=== PATIENT | female | born 1935 | race Caucasian/White ===

== ENCOUNTER → 2018-01-23 | Outpatient (CLI) | payer OTHER ==
[~2018-01-23] MED LIST: ASPI81TA28 PO; ATOR-24 PO; BNC5 PO; CALC500C70 PO; CLOP1TAB15 PO; FLUO20CA35 PO; FURO-85 PO; HYDCR1CL TOP; METO25TA56 PO; MULT-506 PO; NTRGSL/4 UT; SPIR25TA PO
== END | disposition home or self-care (01) ==
LOC: C.LAB1850 08:27
PROVIDERS: ATTEND Internal Medicine Cardiovascular Disease
DX: I10 Essential (primary) hypertension (principal); E78.5 Hyperlipidemia, unspecified

== ENCOUNTER 2022-09-06 09:40 | Inpatient (IN) ==
[2022-09-06] MEDS ORDERED: SODIUM CHLORIDE 0.9% 1000ML 500 ML IV ONE (10:03)
[2022-09-06 10:34] LABS: Basophils # (auto) 0.03 K/uL (0-0.2); Basophils % (auto) 0.4 %; Eosinophils % (auto) 1.3 %; Hematocrit (blood only) 44.5 % (37.0-47.0); Hemoglobin 15.1 g/dl (12.0-16.0); Immature Granulocytes # (auto) 0.02 K/uL (0.01-0.20); Immature Granulocytes % (auto) 0.3 %; Lymphocytes # (auto) 1.42 K/uL (1.2-3.4); Lymphocytes % (auto) 17.8 %; Mean Corpuscular Hemoglobin 32.5 pg (25.0-34.0); Mean Corpuscular Hgb Conc 33.9 g/dL (32.0-36.0); Mean Corpuscular Volume 95.9 fL (80.0-100.0); Mean Platelet Volume 9.7 fL (9.4-12.4); Monocytes # (auto) 0.82 K/uL (0.11-0.59); Monocytes % (auto) 10.3 %; Neutrophils # (auto) 5.59 K/uL (1.40-6.50); Neutrophils % (auto) 69.9 %; Platelet Count 255 K/uL (130-400); RDW Coefficient of Variation 12.9 % (11.5-14.5); RDW Standard Deviation 45.3 fL (36.4-46.3); Red Blood Count 4.64 M/uL (4.20-5.40); White Blood Count 7.98 K/ul (4.8-10.8)
[2022-09-06 10:50] LABS: Albumin Globulin Ratio 1.4 (0.9-2); Albumin Level 4.4 gm/dl (3.4-5.0); BUN Creatinine Ratio 15.4 (10-20); Bilirubin,Total 0.7 mg/dl (0.2-1.0); Creatinine Clr Calc Pharmacy 65.2 ml/min; Est GFR (African American) 93.8 ml/min; Globulin 3.1 gm/dl (2.5-4.0); Magnesium 1.9 mg/dl (1.7-2.4); Potassium 3.6 mmol/L (3.5-5.1); Total Protein 7.5 gm/dl (6.0-8.3)
[2022-09-06 10:57] LABS: Troponin I High Sensitivity 19.6 pg/ml (0-14)
--- NOTE | 2022-09-06 10:58 | XRay Report ---
XR shoulder LT min 2V routine CLINICAL HISTORY: Left shoulder pain s/p fall COMPARISON: None FINDINGS: Left subclavian pacer is partially imaged. Alignment of the left shoulder is anatomic. No acute fracture. There are no osseous lesions. There is possible calcific tendinitis of the left rotat or cuff. Joint body could appear similar. Moderate AC joint osteoarthritis is present. There is mild glenohumeral joint osteoarthritis. IMPRESSION: No acute fracture or dislocation within the left shoulder. ACT 112: Negative or not required by law. Electronically signed by: Jarett Chiu M.D. 09/06/2022 10:57 AM
[2022-09-06 10:59] LABS: INR 1.1 (0.9-1.1); Prothrombin Time 11.3 Seconds (9.0-12.0)
--- NOTE | 2022-09-06 11:02 | XRay Report ---
XR chest 1V portable HISTORY: weakness COMPARISON: Chest 02/15/2013. FINDINGS: No pneumothorax. No pleural effusions. The cardiac silhouette remains mildly enlarged. The left-sided pacemaker/defibrillator. Left basilar linear densities favor subsegmental atelectasis. Oth erwise, no focal lung consolidations to suggest a pneumonia. No evidence for pulmonary edema. Degener ative changes again noted within the shoulders. IMPRESSION: No significant change compared to the prior study. No acute process. ACT 112: Negative or not required by law. Electronically signed by: Valdo Pretty M.D. 09/06/2022 11:01 AM
--- NOTE | 2022-09-06 11:05 | Emergency Department Note ---
ED Provider Note History of Present Illness Chief Complaint: Fall Stated Complaint: FALL, L ARM PAIN Time Seen by Provider: 09/06/22 09:46 86-year-old female who presents the emergency department via ambulance for evaluation of a fall with related injuries. The patient reports that she was standing in her 's bedroom on Sunday when she fell. The patient reports that she fell because of weakness. Per EMS, the at home reported that she has fallen several times over the past month to month and a half. The patient reports dizziness. She reports generalized left shoulder pain extending into the back and neck. She denies any loss of consciousness from her fall. She also currently denies any headache, chest pain, shortness of breath or abdominal pain. She denies any recent infections. She denies known history of thyroid disease. The patient rates her discomfort a 4 out of 10. Home Medications Medication Instructions Recorded Confirmed Type aspirin 81 mg tablet,delayed 81 mg PO DAILY 04/22/19 09/06/22 History release (Mel Low Dose Aspirin) atorvastatin 40 mg tablet 40 mg PO QPM 04/22/19 09/06/22 History clopidogrel 75 mg tablet 75 mg PO DAILY #90 tabs 04/22/19 09/06/22 Rx furosemide 20 mg tablet 20 mg PO DAILY 04/22/19 09/06/22 History metoprolol tartrate 25 mg tablet 25 mg PO BID 04/22/19 09/06/22 History multivitamin 1 tab PO DAILY 04/22/19 09/06/22 History nitroglycerin 0.4 mg sublingual 0.4 mg sublingual Q5M PRN Chest 04/22/19 09/06/22 History tablet Pain spironolactone 25 mg tablet 12.5 mg PO DAILY 04/22/19 09/06/22 History calcium carbonate 500 mg-vitamin 1 tab PO TID 09/06/22 09/06/22 History D3 5 mcg (200 unit) tablet (Calcium 500 + D) fluoxetine 20 mg capsule 20 mg PO QAM 09/06/22 09/06/22 History Allergies Allergy/AdvReac Type Severity Reaction Status Date / Time Penicillins Allergy Mild Verified 07/14/22 10:10 Bactrim Allergy Unknown As per H&P Verified 12/01/14 12:06 Dr Zazueta meclofenamic acid Allergy Unknown Verified 07/14/22 10:10 propoxyphene Allergy Unknown Verified 07/14/22 10:10 sulfamethoxazole Allergy Unknown As per H&P Verified 07/14/22 10:10 Dr Zazueta trimethoprim Allergy Unknown As per H&P Verified 07/14/22 10:10 Dr Zazueta Past Med/Surg History Medical History Biventricular ICD (implantable cardioverter-defibrillator) in place CAD (coronary artery disease) Cardiomyopathy Depression Dyslipidemia History of myocardial infarction History of pacemaker Hypercholesterolemia Hypertension ICD (implantable cardioverter-defibrillator), single, in situ Sensorineural hearing loss of both ears Surgical History History of implantable cardioverter-defibrillator (ICD) placement Family History (Updated 09/06/22 @ 15:12 by Amy Weir PA-C) Other Heart disease Stroke Social History (Updated 09/06/22 @ 14:04 by Mauri Miller) Smoking Status: Never smoker Preferred Language: Citizen Of [place] marital status: Current Living Situation: Spouse current occupational status: retired Feels Safe at Home: Yes Physical Exam Vital Signs Vital Signs - 24 hr 09/06/22 09:46 09/06/22 09:46 09/06/22 10:03 Temperature 36.4 C L Temperature Source Oral Pulse Rate - Lying Pulse Rate - Sitting Pulse Rate 86 Pulse Rate [Apical] 96 H Pulse Rate from SpO2 Sensor Pulse Rhythm [Apical] Respiratory Rate 16 16 Respiratory Effort / Characteristics Respiratory Depth Respiratory Pattern Blood Pressure - Lying Blood Pressure - Sitting Blood Pressure 204/86 H Blood Pressure [Left Arm] Blood Pressure Mean 125 Blood Pressure Mean [Left Arm] Blood Pressure Position [Left Arm] Pulse Oximetry 95 96 96 Oxygen Delivery Method Sepsis Recent Fever Within 48 Hours No Sepsis New/Unexplained Change in Mental Status N/A Sepsis Action Taken by Nursing No Action Required 09/06/22 10:32 09/06/22 10:35 09/06/22 12:30 Temperature Temperature Source Pulse Rate - Lying 63 Pulse Rate - Sitting 62 Pulse Rate Pulse Rate [Apical] 68 66 Pulse Rate from SpO2 Sensor Pulse Rhythm [Apical] Regular Respiratory Rate 16 16 Respiratory Effort / Characteristics Non-Labored Respiratory Depth Normal Respiratory Pattern Regular Blood Pressure - Lying 179/72 H Blood Pressure - Sitting 177/91 H Blood Pressure Blood Pressure [Left Arm] 172/79 H 171/83 H Blood Pressure Mean Blood Pressure Mean [Left Arm] 110 112 Blood Pressure Position [Left Arm] Lying Pulse Oximetry 96 94 Oxygen Delivery Method Room Air Sepsis Recent Fever Within 48 Hours Sepsis New/Unexplained Change in Mental Status Sepsis Action Taken by Nursing 09/06/22 13:47 09/06/22 13:46 09/06/22 13:50 Temperature Temperature Source Pulse Rate - Lying Pulse Rate - Sitting Pulse Rate 75 75 78 Pulse Rate [Apical] Pulse Rate from SpO2 Sensor 73 78 Pulse Rhythm [Apical] Respiratory Rate 19 21 Respiratory Effort / Characteristics Respiratory Depth Respiratory Pattern Blood Pressure - Lying Blood Pressure - Sitting Blood Pressure Blood Pressure [Left Arm] Blood Pressure Mean Blood Pressure Mean [Left Arm] Blood Pressure Position [Left Arm] Pulse Oximetry 93 93 Oxygen Delivery Method Sepsis Recent Fever Within 48 Hours Sepsis New/Unexplained Change in Mental Status Sepsis Action Taken by Nursing 09/06/22 14:00 09/06/22 14:01 09/06/22 14:01 Temperature Temperature Source Pulse Rate - Lying Pulse Rate - Sitting Pulse Rate 79 78 Pulse Rate [Apical] Pulse Rate from SpO2 Sensor 64 78 Pulse Rhythm [Apical] Respiratory Rate 26 H 21 Respiratory Effort / Characteristics Respiratory Depth Respiratory Pattern Blood Pressure - Lying Blood Pressure - Sitting Blood Pressure 180/75 H Blood Pressure [Left Arm] Blood Pressure Mean 110 Blood Pressure Mean [Left Arm] Blood Pressure Position [Left Arm] Pulse Oximetry 93 92 Oxygen Delivery Method Sepsis Recent Fever Within 48 Hours Sepsis New/Unexplained Change in Mental Status Sepsis Action Taken by Nursing 09/06/22 14:10 09/06/22 14:20 09/06/22 14:30 Temperature Temperature Source Pulse Rate - Lying Pulse Rate - Sitting Pulse Rate 76 84 87 Pulse Rate [Apical] Pulse Rate from SpO2 Sensor 51 L 85 84 Pulse Rhythm [Apical] Respiratory Rate 21 25 H 17 Respiratory Effort / Characteristics Respiratory Depth Respiratory Pattern Blood Pressure - Lying Blood Pressure - Sitting Blood Pressure Blood Pressure [Left Arm] Blood Pressure Mean Blood Pressure Mean [Left Arm] Blood Pressure Position [Left Arm] Pulse Oximetry 93 93 94 Oxygen Delivery Method Sepsis Recent Fever Within 48 Hours Sepsis New/Unexplained Change in Mental Status Sepsis Action Taken by Nursing 09/06/22 14:40 09/06/22 14:50 09/06/22 15:00 Temperature Temperature Source Pulse Rate - Lying Pulse Rate - Sitting Pulse Rate 77 85 65 Pulse Rate [Apical] Pulse Rate from SpO2 Sensor 56 L 80 63 Pulse Rhythm [Apical] Respiratory Rate 23 22 17 Respiratory Effort / Characteristics Respiratory Depth Respiratory Pattern Blood Pressure - Lying Blood Pressure - Sitting Blood Pressure Blood Pressure [Left Arm] Blood Pressure Mean Blood Pressure Mean [Left Arm] Blood Pressure Position [Left Arm] Pulse Oximetry 93 93 93 Oxygen Delivery Method Sepsis Recent Fever Within 48 Hours Sepsis New/Unexplained Change in Mental Status Sepsis Action Taken by Nursing 09/06/22 15:01 09/06/22 15:01 09/06/22 15:10 Temperature Temperature Source Pulse Rate - Lying Pulse Rate - Sitting Pulse Rate 76 77 Pulse Rate [Apical] Pulse Rate from SpO2 Sensor 67 77 Pulse Rhythm [Apical] Respiratory Rate 24 18 Respiratory Effort / Characteristics Respiratory Depth Respiratory Pattern Blood Pressure - Lying Blood Pressure - Sitting Blood Pressure 197/77 H Blood Pressure [Left Arm] Blood Pressure Mean 117 Blood Pressure Mean [Left Arm] Blood Pressure Position [Left Arm] Pulse Oximetry 95 93 Oxygen Delivery Method Sepsis Recent Fever Within 48 Hours Sepsis New/Unexplained Change in Mental Status Sepsis Action Taken by Nursing 09/06/22 15:20 09/06/22 15:30 09/06/22 15:40 Temperature Temperature Source Pulse Rate - Lying Pulse Rate - Sitting Pulse Rate 79 87 79 Pulse Rate [Apical] Pulse Rate from SpO2 Sensor 76 81 80 Pulse Rhythm [Apical] Respiratory Rate 24 22 24 Respiratory Effort / Characteristics Respiratory Depth Respiratory Pattern Blood Pressure - Lying Blood Pressure - Sitting Blood Pressure Blood Pressure [Left Arm] Blood Pressure Mean Blood Pressure Mean [Left Arm] Blood Pressure Position [Left Arm] Pulse Oximetry 95 94 92 Oxygen Delivery Method Sepsis Recent Fever Within 48 Hours Sepsis New/Unexplained Change in Mental Status Sepsis Action Taken by Nursing 09/06/22 15:43 09/06/22 15:43 09/06/22 15:50 Temperature Temperature Source Pulse Rate - Lying Pulse Rate - Sitting Pulse Rate 88 92 H Pulse Rate [Apical] Pulse Rate from SpO2 Sensor 89 85 Pulse Rhythm [Apical] Respiratory Rate 19 31 H Respiratory Effort / Characteristics Respiratory Depth Respiratory Pattern Blood Pressure - Lying Blood Pressure - Sitting Blood Pressure 207/106 H Blood Pressure [Left Arm] Blood Pressure Mean 139 Blood Pressure Mean [Left Arm] Blood Pressure Position [Left Arm] Pulse Oximetry 94 94 Oxygen Delivery Method Sepsis Recent Fever Within 48 Hours Sepsis New/Unexplained Change in Mental Status Sepsis Action Taken by Nursing CONSTITUTIONAL: Healthy and well nourished. Alert and oriented X 3. Patient does not appear in any acute distress. HEENT: Normocephalic, atraumatic. Pupils equal, round and reactive. No scleral icterus or conjunctival injection/pallor. No hemotympanum, epistaxis, raccoon's eyes or banegas sign. NECK: Patient has mild tenderness to palpation through the lower lumbar spine and paraspinous muscles. LYMPHATICS: No cervical chain adenopathy. RESPIRATORY: Clear to auscultation bilaterally with no wheezing, crackles, rhonchi or stridor. CARDIOVASCULAR: Regular rate and rhythm with no murmurs, rubs or gallops. GASTROINTESTINAL: Bowel sounds present in all quadrants. Abdomen is soft and nontender to palpation MUSCULOSKELETAL: Examination shows mild generalized tenderness to palpation about the left distal clavicle and shoulder region. No ecchymosis or soft tissu e edema noted. No significant pain with gentle internal and external rotation. INTEGUMENTARY: No rash or other significant dermatologic conditions noted. HEMATOLOGIC: No ecchymosis or petechiae. PSYCHIATRIC: Positive affect. NEUROLOGIC: Cranial nerves II-XII grossly intact. No focal neurologic deficits noted. Left deltoid, hand and fingers are sensory intact. Course Course Patient history and physical exam were performed. Nurses notes were reviewed. Vital signs were reviewed. The patient refused any analgesics on initial exam. I did recommend because she has had frequent falls, that we do additional work-up to look for possible etiologies for her falls. I did indicate that I would perform x-rays of the left shoulder, as well as CT imaging of the head and neck to rule out intracranial bleed or cervical spine injury. IV access was established, and labs were drawn. The patient refused any analgesics. The patient was hydrated with a normal saline 500 cc bolus. An ECG was performed, showing a paced ventricular rhythm with a PVC. The patient was placed on monitoring manager while in the emergency department. Review of labs shows a relatively normal CBC, coagulation studies and CMP, other than a mildly elevated glucose of 140. Troponin is mildly elevated at 19.6. TSH is normal. Urinalysis shows a contaminated sample with positive nitrites, leukocyte esterase and bacteria. COVID-19 was negative. When I went back to reevaluate the patient, multiple family members were present. They were advised of the patient's findings of UTI, mildly elevated troponin and cervical/thoracic spine fractures. The patient reports that she did not have any back or neck pain prior to her most recent fall, indicating that these are indeed no acute fractures. I did explain that we do not have any orthopedic spine surgeon on-call today, however would try to reach out to Dr. Mederos. The reports that he did surgery on his back in the past. If we are unable to consult spine surgery today, the patient would need to be transferred to a tertiary care facility. It was a large delay in trying to reach out to Dr. Mederos or his physician multimedia production assistant, however I was successfully able to speak with Dr. Mederos's physician multimedia production assistant, Violetta, who agreed that they could follow the patient as her case would be nonsurgical. The information was relayed back to the family, who were relieved. [facility] Please see their and Dr. Mederos's dictations for further treatment and final disposition. As we were waiting for spine surgery to call back, the then reported that the patient's fall was a mechanical fall as she was making his bed, and tripped over a rug. He also reports that the patient's 2 previous falls happened 3 years ago. He reports that she has not had frequent falls recently as it was reported by EMS staff. Administered Medications Discontinued Medications Sodium Chloride (Nss 1000ml) 500 mls @ 999 mls/hr IV .Q31M ONE Stop: 09/06/22 10:33 Last Infusion: 09/06/22 12:36 Dose: 0 mls/hr Documented By: Admin: 09/06/22 10:32 Dose: 999 mls/hr Documented By: KRISTIN Ceftriaxone Sodium (Rocephin) 2,000 mg in 70 mls @ 140 mls/hr IV NOW STA Stop: 09/06/22 13:56 Last Infusion: 09/06/22 14:27 Dose: 0 mls/hr Documented By: Admin: 09/06/22 13:47 Dose: 140 mls/hr Documented By: JUANJO Metoprolol Tartrate (Metoprolol Tartrate 25 Mg Tab) 25 mg PO NOW STA Stop: 09/06/22 15:47 Last Admin: 09/06/22 15:56 Dose: 25 mg Documented By: JUANJO Medical Decision Making Medical Records Attestation: I reviewed the patient's medical records. Home Medications was personally reviewed by mo Laboratory Data Attestation: I reviewed the patient's lab results. 09/06/22 09:56 09/06/22 09:56 Lab Results 09/06/22 09/06/22 09/06/22 Range/Units 09:56 09:56 09:56 WBC 7.98 (4.8-10.8) K/ul RBC 4.64 (4.20-5.40) M/uL Hgb 15.1 (12.0-16.0) g/dl Hct 44.5 (37.0-47.0) % MCV 95.9 (80.0-100.0) fL MCH 32.5 (25.0-34.0) pg MCHC 33.9 (32.0-36.0) g/dL RDW Std Deviation 45.3 (36.4-46.3) fL RDW Coeff of Nam 12.9 (11.5-14.5) % Plt Count 255 (130-400) K/uL MPV 9.7 (9.4-12.4) fL Immature Gran % (Auto) 0.3 % Neut % (Auto) 69.9 % Lymph % (Auto) 17.8 % [place] % (Auto) 10.3 % Eos % (Auto) 1.3 % Baso % (Auto) 0.4 % Neut # (Auto) 5.59 (1.40-6.50) K/uL Lymph # (Auto) 1.42 (1.2-3.4) K/uL [place] # (Auto) 0.82 H (0.11-0.59) K/uL Eos # (Auto) 0.10 (0-0.50) K/uL Baso # (Auto) 0.03 (0-0.2) K/uL Immature Gran # (Auto) 0.02 (0.01-0.20) K/uL PT 11.3 (9.0-12.0) Seconds INR 1.1 (0.9-1.1) Sodium 138 (136-145) mmol/L Potassium 3.6 (3.5-5.1) mmol/L Chloride 102 (98-107) mmol/L Carbon Dioxide 26 (21-32) mmol/L Anion Gap 10 (3-11) BUN 10 (6-23) mg/dl Creatinine 0.65 (0.6-1.2) mg/dl Est Cr Clr Drug Dosing 65.2 ml/min Est GFR ( Amer) 93.8 ml/min Est GFR (Non-Af Amer) 81.0 ml/min BUN/Creatinine Ratio 15.4 (10-20) Glucose 140 H (70-99(Fasting)) mg/dl Calcium 10.0 (8.5-10.1) mg/dl Magnesium 1.9 (1.7-2.4) mg/dl Total Bilirubin 0.7 (0.2-1.0) mg/dl AST 14 (13-39) U/L ALT 10 (7-52) U/L Alkaline Phosphatase 72 (34-104) U/L Troponin I High Sens 19.6 H (0-14) pg/ml Total Protein 7.5 (6.0-8.3) gm/dl Albumin 4.4 (3.4-5.0) gm/dl Globulin 3.1 (2.5-4.0) gm/dl Albumin/Globulin Ratio 1.4 (0.9-2) TSH (0.300-4.500) uIu/ml Urine Color Urine Appearance (Clear) Urine pH (4.5-7.5) Ur Specific [place] (1.000-1.030) Urine Protein (Negative) Urine Glucose (UA) (Negative) Urine Ketones (Negative) Urine Blood (Negative) Urine Nitrite (Negative) Urine Bilirubin (Negative) Urine Urobilinogen (Negative) Ur Leukocyte Esterase (Negative) Urine WBC (Auto) (0-5) /hpf Urine RBC (Auto) (0-4) /hpf U Hyaline Cast (Auto) (0-5) /lpf U Epithel Cells (Auto) (0-5) /lpf Urine Bacteria (Auto) (Negative) Urine Yeast SARS-CoV-2, RNA, NAAT (NEGATIVE) 09/06/22 09/06/22 09/06/22 Range/Units 09:56 11:29 13:30 WBC (4.8-10.8) K/ul RBC (4.20-5.40) M/uL Hgb (12.0-16.0) g/dl Hct (37.0-47.0) % MCV (80.0-100.0) fL MCH (25.0-34.0) pg MCHC (32.0-36.0) g/dL RDW Std Deviation (36.4-46.3) fL RDW Coeff of Nam (11.5-14.5) % Plt Count (130-400) K/uL MPV (9.4-12.4) fL Immature Gran % (Auto) % Neut % (Auto) % Lymph % (Auto) % [place] % (Auto) % Eos % (Auto) % Baso % (Auto) % Neut # (Auto) (1.40-6.50) K/uL Lymph # (Auto) (1.2-3.4) K/uL [place] # (Auto) (0.11-0.59) K/uL Eos # (Auto) (0-0.50) K/uL Baso # (Auto) (0-0.2) K/uL Immature Gran # (Auto) (0.01-0.20) K/uL PT (9.0-12.0) Seconds INR (0.9-1.1) Sodium (136-145) mmol/L Potassium (3.5-5.1) mmol/L Chloride (98-107) mmol/L Carbon Dioxide (21-32) mmol/L Anion Gap (3-11) BUN (6-23) mg/dl Creatinine (0.6-1.2) mg/dl Est Cr Clr Drug Dosing ml/min Est GFR ( Amer) ml/min Est GFR (Non-Af Amer) ml/min BUN/Creatinine Ratio (10-20) Glucose (70-99(Fasting)) mg/dl Calcium (8.5-10.1) mg/dl Magnesium (1.7-2.4) mg/dl Total Bilirubin (0.2-1.0) mg/dl AST (13-39) U/L ALT (7-52) U/L Alkaline Phosphatase (34-104) U/L Troponin I High Sens (0-14) pg/ml Total Protein (6.0-8.3) gm/dl Albumin (3.4-5.0) gm/dl Globulin (2.5-4.0) gm/dl Albumin/Globulin Ratio (0.9-2) TSH 0.972 (0.300-4.500) uIu/ml Urine Color Yellow Urine Appearance Turbid A (Clear) Urine pH 7.5 (4.5-7.5) Ur Specific [place] 1.018 (1.000-1.030) Urine Protein 1+ H (Negative) Urine Glucose (UA) Negative (Negative) Urine Ketones 2+ H (Negative) Urine Blood 1+ H (Negative) Urine Nitrite Positive A (Negative) Urine Bilirubin Negative (Negative) Urine Urobilinogen Negative (Negative) Ur Leukocyte Esterase 3+ H (Negative) Urine WBC (Auto) >30 H (0-5) /hpf Urine RBC (Auto) 5-10 H (0-4) /hpf U Hyaline Cast (Auto) 1-5 (0-5) /lpf U Epithel Cells (Auto) >30 H (0-5) /lpf Urine Bacteria (Auto) 4+ H (Negative) Urine Yeast Not Reportable SARS-CoV-2, RNA, NAAT NEGATIVE (NEGATIVE) Imaging Data Attestation: I personally reviewed and interpreted this imaging study as follows: My Impression: My interpretation of a portable chest x-ray does not show evidence for consolidations, pneumothorax or failure pattern. My interpretation of left shoulder x-rays does not show evidence for fracture or dislocation. My interpretation of a noncontrast CT of the head does not show evidence for skull fracture or intracranial bleed. My interpretation of cervical spine x-ray shows a compression fracture of C7 and left superior facet of C7. Radiologist also makes mention of endplate deformities of inferior T1, and superior T2. Radiologist reports were also reviewed with concurrence. Radiologist's Impression: Chest X-Ray 09/06/22 10:03 XR chest 1V portable HISTORY: weakness COMPARISON: Chest 02/15/2013. FINDINGS: No pneumothorax. No pleural effusions. The cardiac silhouette remains mildly enlarged. The left-sided pacemaker/defibrillator. Left basilar linear densities favor subsegmental atelectasis. Otherwise, no focal lung consolidations to suggest a pneumonia. No evidence for pulmonary edema. Degenerative changes again noted within the shoulders. IMPRESSION: No significant change compared to the prior study. No acute process. ACT 112: Negative or not required by law. Electronically signed by: Valdo Pretty M.D. 09/06/2022 11:[address] 09/06/22 10:03 CT SCAN OF THE BRAIN WITHOUT IV CONTRAST CLINICAL HISTORY: Fall. COMPARISON STUDY: CT of the brain dated 04/06/2013. TECHNIQUE: Unenhanced axial CT scan of the brain is performed from the vertex to the skull base. A dose lowering technique was utilized adhering to the principles of ALARA. CT DOSE: 1073.15 mGy.cm FINDINGS: Brain parenchyma: There is age-related involutional change noting mild subcortical and periventricular microangiopathic disease. There is no hemorrhag e, mass effect, or evidence of acute territorial ischemia by CT criteria. Hardin- white matter differentiation is preserved. No extra-axial fluid collection is seen. Ventricles, sulci, cisterns: Prominent secondary to involutional change. Intracranial vasculature: There is atherosclerotic calcification of the cavernous carotid arteries. Calvarium: The skeletal structures are osteopenic. No depressed calvarial fracture is seen. Sinuses and mastoids: The visualized paranasal sinuses are clear. The mastoid air cells are well pneumatized. Orbits: The bony orbits are grossly intact. There are bilateral ocular lens implants. IMPRESSION: There is no hemorrhage, mass effect, or evidence of acute territorial ischemia by CT criteria. ACT 112: Negative or not required by law. Electronically signed by: Ceferino Poole M.D. 09/06/2022 12:39 PM Shoulder X-Ray 09/06/22 10:03 XR shoulder LT min 2V routine CLINICAL HISTORY: Left shoulder pain s/p fall COMPARISON: None FINDINGS: Left subclavian pacer is partially imaged. Alignment of the left shoulder is anatomic. No acute fracture. There are no osseous lesions. There is possible calcific tendinitis of the left rotator cuff. Joint body could appear similar. Moderate AC joint osteoarthritis is present. There is mild glenohumeral joint osteoarthritis. IMPRESSION: No acute fracture or dislocation within the left shoulder. ACT 112: Negative or not required by law. Electronically signed by: Jarett Chiu M.D. 09/06/2022 10:[address] 09/06/22 10:08 CT OF THE CERVICAL SPINE WITHOUT CONTRAST CLINICAL HISTORY: s/p fall COMPARISON STUDY: Cervical spine CT February 15, 2013. TECHNIQUE: Helical axial images of the cervical spine were obtained without IV contrast. Sagittal and coronal reconstructions were viewed. Automated exposure control was utilized for the study. A dose lowering technique was utilized adhering to the principles of ALARA. FINDINGS: Asymmetric enlargement of the right thyroid lobe is again noted. This is unchanged. Reversal of the cervical lordosis is unchanged. Note is made of an acute fracture of the C7 vertebral body with 50% loss of vertebral body height and minimal retropulsion. There is an additional acute nondisplaced fracture of the left superior articulating facet of C7. There is an acute fracture along the inferior endplate of T1 with mild loss of vertebral body height. Fracture extends along anterior aspect of the inferior endplate. In addition, there is an acute appearing fracture of the superior endplate of T2 with mild loss of vertebral body height. Moderate multilevel degenerative changes are present. IMPRESSION: 1. Acute fracture of the C7 vertebral body with 50% loss of vertebral body height and minimal retropulsion. In addition, an acute nondisplaced fracture of the left superior articulating facet of C7. 2. Acute fractures of the inferior endplate of T1 and the superior endplate of T2 with mild loss of vertebral body height. ACT 112: Negative or not required by law. Electronically signed by: Jarett Chiu M.D. 09/06/2022 12:50 PM ECG Data Attestation: I personally reviewed and interpreted this ECG as follows: Indication: + weakness Rate (beats per minute): 69 Rhythm: + sinus rhythm (Paced ventricular) ECG [place]: + Normal Comparison ECG Date: from (12/01/2014) Change: no significant change MDM Narrative Cardiac monitoring: An order was placed for continuous cardiac monitoring. The monitor shows a ventricular paced rhythm with a rate of 69 bpm. teletypesetter monitor history was reviewed throughout the evaluation, and no dysrhythmias were noted. After discussions with the patient's , the patient presents to the emergency department with complaint of persistent left shoulder pain after she suffered a mechanical fall while making a bed on Sunday. They tried not conservative management at home with persistent pain, therefore brought her to the emergency department for further evaluation. Today's work-up shows a C7 vertebral fracture with a 50% compression, and minimal retropulsion, as well as a nondisplaced left lateral process fracture. The patient also has other mild endplate compression deformities of T1 and T2. Additional work-up today does show an elevated troponin, however the patient does have a prior history of m yocardial infarction. She also has urinalysis findings concerning for UTI. After discussing this further with our ED pharmacist, the patient will be empirically treated with IV Rocephin. The case was discussed with the [facility] hospitalist, who has agreed to admission. Please see their dictation, as well as Dr. Mederos's dictation for further treatment and final disposition. Impression Compression fracture of C7 vertebra, Compression fracture of thoracic vertebra Discharge Plan Visit Data Chief Complaint: Fall Stated Complaint: FALL, L ARM PAIN ED Provider: Donis Thomas ED Midlevel Provider: Mauri Miller Discharge Problem: Compression fracture of C7 vertebra, Compression fracture of thoracic vertebra Forms Stand Alone Forms: [facility] tenfarms Prescriptions Prescriptions: No Action aspirin [Mel Low Dose Aspirin] 81 mg tablet,delayed release (DR/EC) 81 mg PO DAILY metoprolol tartrate 25 mg tablet 25 mg PO BID nitroglycerin 0.4 mg tablet, sublingual 0.4 mg SL Q5M PRN (Reason: Chest Pain) clopidogrel 75 mg tablet 75 mg PO DAILY Qty: 90 3RF atorvastatin 40 mg tablet 40 mg PO QPM furosemide 20 mg tablet 20 mg PO DAILY Rx Instructions: as directed for weight gain greater than 2 lbs in 24 hours or greater than 4 lbs in 3 days spironolactone 25 mg tablet 12.5 mg PO DAILY multivitamin tablet 1 tab PO DAILY fluoxetine 20 mg capsule 20 mg PO QAM calcium carbonate-vitamin D3 [Calcium 500 + D] 500 mg-5 mcg (200 unit) Tablet 1 tab PO TID Referrals Referrals: Coleman Gonzales MD [Primary Care Provider] - Compression fracture of C7 vertebra Qualifiers: Encounter type: initial encounter Qualified Code(s): S12.690A - Other displaced fracture of seventh cervical vertebra, initial encounter for closed fracture Compression fracture of thoracic vertebra Qualifiers: Encounter type: initial encounter Thoracic vertebra fracture level: T1 Qualified Code(s): S22.010A - Wedge compression fracture of first thoracic vertebra, initial encounter for closed fracture
[2022-09-06 12:10] LABS: Appearance Urine Turbid (Clear); Bacteria Urine Automated 4+ (Negative); Bilirubin Urine Negative (Negative); Blood Urine 1+ (Negative); Color Urine Yellow; Epithelial Cell Urine Auto >30 /lpf (0-5); Glucose Urine UA Negative (Negative); Ketones Urine 2+ (Negative); Leukocyte Esterase Urine 3+ (Negative); Nitrite Urine Positive (Negative); Specific Gravity Urine 1.018 (1.000-1.030); Urobilinogen Urine Negative (Negative); WBC Urine Automated >30 /hpf (0-5); pH Urine 7.5 (4.5-7.5)
[2022-09-06 12:24] LABS: Protein Urine 1+ (Negative)
--- NOTE | 2022-09-06 12:41 | CT Scan Report ---
CT SCAN OF THE BRAIN WITHOUT IV CONTRAST CLINICAL HISTORY: Fall. COMPARISON STUDY: CT of the brain dated 04/06/2013. TECHNIQUE: Unenhanced axial CT scan of the brain is performed from the vertex to the skull base. A do se lowering technique was utilized adhering to the principles of ALARA. CT DOSE: 1073.15 mGy.cm FINDINGS: Brain parenchyma: There is age-related involutional change noting mild subcortical and periventricula r microangiopathic disease. There is no hemorrhage, mass effect, or evidence of acute territorial isc hemia by CT criteria. Hardin-white matter differentiation is preserved. No extra-axial fluid collection is seen. Ventricles, sulci, cisterns: Prominent secondary to involutional change. Intracranial vasculature: There is atherosclerotic calcification of the cavernous carotid arteries. Calvarium: The skeletal structures are osteopenic. No depressed calvarial fracture is seen. Sinuses and mastoids: The visualized paranasal sinuses are clear. The mastoid air cells are well pneu matized. Orbits: The bony orbits are grossly intact. There are bilateral ocular lens implants. IMPRESSION: There is no hemorrhage, mass effect, or evidence of acute territorial ischemia by CT ryan coto. ACT 112: Negative or not required by law. Electronically signed by: Ceferino Poole M.D. 09/06/2022 12:39 PM
--- NOTE | 2022-09-06 12:51 | CT Scan Report ---
CT OF THE CERVICAL SPINE WITHOUT CONTRAST CLINICAL HISTORY: s/p fall COMPARISON STUDY: Cervical spine CT February 15, 2013. TECHNIQUE: Helical axial images of the cervical spine were obtained without IV contrast. Sagittal a nd coronal reconstructions were viewed. Automated exposure control was utilized for the study. A do se lowering technique was utilized adhering to the principles of ALARA. FINDINGS: Asymmetric enlargement of the right thyroid lobe is again noted. This is unchanged. Reversa l of the cervical lordosis is unchanged. Note is made of an acute fracture of the C7 vertebral body w ith 50% loss of vertebral body height and minimal retropulsion. There is an additional acute nondisplaced fracture of the left superior articulating facet of C7. There is an acute fracture along the inferior endplate of T1 with mild loss of vertebral body height. Fracture extends along anterior aspect of the inferior endplate. In addition, there is an acute appearing fracture of the superior e ndplate of T2 with mild loss of vertebral body height. Moderate multilevel degenerative changes are p resent. IMPRESSION: 1. Acute fracture of the C7 vertebral body with 50% loss of vertebral body height and minimal retropu lsion. In addition, an acute nondisplaced fracture of the left superior articulating facet of C7. 2. Acute fractures of the inferior endplate of T1 and the superior endplate of T2 with mild loss of v ertebral body height. ACT 112: Negative or not required by law. Electronically signed by: Jarett Chiu M.D. 09/06/2022 12:50 PM
[2022-09-06] MEDS ORDERED: cefTRIAXone SODIUM 2,000 MG/70 ML BAG IV STA (13:27)
--- NOTE | 2022-09-06 15:20 | History & Physical Report ---
Date of Service September 06, 2022 Assessment & Plan (1) Compression fracture of C7 vertebra: (2) Compression fracture of thoracic vertebra: Plan: -Admit to [facility] with telemetry -Imaging of cervical spine x-ray reviewed showing an acute C7 compression fracture with 50% loss of vertebral body and minimal retropulsion, and acute nondisplaced fracture of the left superior articulating facet of C7, inferior T1 and superior T2 endplate fractures. -Discussion with the ER reported Dr. Violetta Wilson notes these fractures are nonoperable -Pain control with Tylenol 650 every 8, will add additional IV med if needed for breakthrough pain, lidocain patch -PT/OT consults -Ortho spine consult- continue Daggett J-collar until they are seen -Allow diet as this is nonsurgical (3) UTI (urinary tract infection): Plan: - UA appears to be grossly infected, follow urine culture, possibly adding to imbalance and fall which occurred as per HPI - IV Rocephin started in the ER, continue - WBC 7.98, afebrile (4) CAD (coronary artery disease): (5) Cardiomyopathy: (6) Hypertension: (7) Hypercholesterolemia: (8) Biventricular ICD (implantable cardioverter-defibrillator) in place: Plan: - Last Echo is from September 2008 where she had LVEF of 30% - Trop 19.7, trend another set now -Order metoprolol 25 mg now as she missed her morning medications, continue spironolactone and Lasix tomorrow morning -We will start new medication, losartan 25 mg tomorrow morning -Patient appears euvolemic, no signs of fluid overload -IV hydralazine as needed with parameters for hypertension (9) Depression: Plan: - Cont prozac DVT PPx: - teds, scds, Plavix and aspirin CODE: DNR/DNI Dispo: From home, likely to remain in the hospital x 1-2 days A total of 76 minutes were spent with greater than 50% of that time face to face with the patient, personally reviewing all current laboratories, imaging studies, past medication reconciliation, outpatient chart review, and discussion with specialists to collaborate care for the patient with attending. Please see attending documentation for corrections and/or additions. History of Present Illness Chief Complaint: Fall, left shoulder pain Primary Care Provider: Coleman Gonzales MD This is an 86-year-old female with PMHx of CAD, ischemic cardiomyopathy, biventricular ICD/defibrillator in place, HTN, DM type II, osteoporosis, prediabetes who presents to the hospital after she sustained a mechanical fall on Sunday where she tripped over carpet in her home when making the bed. She fell and hit her neck, and had immediate pain but at that time she refused to come to the hospital. Since then her pain worsened. reports that pt has use tylenol, Salonpas patches, and Aspercreme at home to control the pain. She also admits that the front of her chest hurts since she fell, but denies sharp stabbing chest pain or shortness of breath. Prior to the fall she did not use assistive device for ambulation, but since has been using a cane to help her get around the house. Here in the ER and patient is found to have a dirty UA, suspected urinary tract infection. An acute C7 compression fracture with 50% loss of vertebral body and minimal retropulsion, and acute nondisplaced fracture of the left superior articulating facet of C7, inferior T1 and superior T2 endplate fractures. Third troponin is found to be mildly elevated at 19.6. Allergies Allergy/AdvReac Type Severity Reaction Status Date / Time Penicillins Allergy Mild Verified 07/14/22 10:10 Bactrim Allergy Unknown As per H&P Verified 12/01/14 12:06 Dr Zazueta meclofenamic acid Allergy Unknown Verified 07/14/22 10:10 propoxyphene Allergy Unknown Verified 07/14/22 10:10 sulfamethoxazole Allergy Unknown As per H&P Verified 07/14/22 10:10 Dr Zazueta trimethoprim Allergy Unknown As per H&P Verified 07/14/22 10:10 Dr Zazueta Home Medications Medication Instructions Recorded Confirmed Type aspirin 81 mg tablet,delayed 81 mg PO DAILY 04/22/19 09/06/22 History release (Mel Low Dose Aspirin) atorvastatin 40 mg tablet 40 mg PO QPM 04/22/19 09/06/22 History clopidogrel 75 mg tablet 75 mg PO DAILY #90 tabs 04/22/19 09/06/22 Rx furosemide 20 mg tablet 20 mg PO DAILY 04/22/19 09/06/22 History metoprolol tartrate 25 mg tablet 25 mg PO BID 04/22/19 09/06/22 History multivitamin 1 tab PO DAILY 04/22/19 09/06/22 History nitroglycerin 0.4 mg sublingual 0.4 mg sublingual Q5M PRN Chest 04/22/19 09/06/22 History tablet Pain spironolactone 25 mg tablet 12.5 mg PO DAILY 04/22/19 09/06/22 History calcium carbonate 500 mg-vitamin 1 tab PO TID 09/06/22 09/06/22 History D3 5 mcg (200 unit) tablet (Calcium 500 + D) fluoxetine 20 mg capsule 20 mg PO QAM 09/06/22 09/06/22 History Past Med/Surg History Medical History Biventricular ICD (implantable cardioverter-defibrillator) in place CAD (coronary artery disease) Cardiomyopathy Depression Dyslipidemia History of myocardial infarction History of pacemaker Hypercholesterolemia Hypertension ICD (implantable cardioverter-defibrillator), single, in situ Sensorineural hearing loss of both ears Surgical History History of implantable cardioverter-defibrillator (ICD) placement Family History (Updated 09/06/22 @ 15:12 by Amy Weir PA-C) Other Heart disease Stroke Social History (Updated 09/06/22 @ 14:04 by Mauri Miller) Smoking Status: Never smoker Hx Alcohol Use: No Hx Substance Use: No Preferred Language: Cypriot Communication Ability: Effective Manager Public Required: No Beliefs That Will Affect Care: None marital status: Current Living Situation: Spouse current occupational status: retired Feels Safe at Home: Yes Safety Concerns: Feels Safe At This Time Assistive Devices: Cane and Walker Review of Systems Review of Systems: Constitutional: No fever, sweats or chills Eyes: No diplopia, no worsening or blurred vision ENT: normal hearing, no trouble swallowing Respiratory: No cough, sputum, dyspnea at rest or on exertion Cardiovascular: No chest pain, tightness or palpitations Abdomen: No pain, nausea, vomiting, diarrhea or constipation : denies dysuria, incontinence or increased frequency Musculoskeletal: No joint pain, calf pain, swelling Neurologic: No weakness, numbness/tingling, or balance problems Psychiatric: No anxiety or depression Skin: No rash or itch Physical Exam Physical Exam: Please refer to attending addendum for physical exam. Results & Data Results & Data Vital Signs (Past 12 Hours) Vital Signs Temp Pulse Pulse Resp BP BP Pulse Ox 09/06/22 13:47 75 09/06/22 12:30 66 16 171/83 H 94 09/06/22 10:35 68 16 172/79 H 96 09/06/22 10:03 96 09/06/22 09:46 96 H 16 96 09/06/22 09:46 36.4 C L 86 16 204/86 H 95 O2 Del Method 09/06/22 13:47 09/06/22 12:30 Room Air 09/06/22 10:35 09/06/22 10:03 09/06/22 09:46 09/06/22 09:46 Laboratory Results 09/06/22 11:29 Urine Culture - Pending Urine,Clean Catch 09/06/22 09/06/22 09/06/22 13:30 11:29 09:56 WBC RBC Hgb Hct MCV MCH MCHC RDW Std Deviation RDW Coeff of Nam Plt Count MPV Immature Gran % (Auto) Neut % (Auto) Lymph % (Auto) [place] % (Auto) Eos % (Auto) Baso % (Auto) Neut # (Auto) Lymph # (Auto) [place] # (Auto) Eos # (Auto) Baso # (Auto) Immature Gran # (Auto) PT INR Sodium Potassium Chloride Carbon Dioxide Anion Gap BUN Creatinine Est Cr Clr Drug Dosing Est GFR ( Amer) Est GFR (Non-Af Amer) BUN/Creatinine Ratio Glucose Calcium Magnesium Total Bilirubin AST ALT Alkaline Phosphatase Troponin I High Sens Total Protein Albumin Globulin Albumin/Globulin Ratio TSH 0.972 Urine Color Yellow Urine Appearance Turbid A Urine pH 7.5 Ur Specific [place] 1.018 Urine Protein 1+ H Urine Glucose (UA) Negative Urine Ketones 2+ H Urine Blood 1+ H Urine Nitrite Positive A Urine Bilirubin Negative Urine Urobilinogen Negative Ur Leukocyte Esterase 3+ H Urine WBC (Auto) >30 H Urine RBC (Auto) 5-10 H U Hyaline Cast (Auto) 1-5 U Epithel Cells (Auto) >30 H Urine Bacteria (Auto) 4+ H Urine Yeast Not Reportable SARS-CoV-2, RNA, NAAT NEGATIVE 09/06/22 09/06/22 09/06/22 09:56 09:56 09:56 WBC 7.98 RBC 4.64 Hgb 15.1 Hct 44.5 MCV 95.9 MCH 32.5 MCHC 33.9 RDW Std Deviation 45.3 RDW Coeff of Nam 12.9 Plt Count 255 MPV 9.7 Immature Gran % (Auto) 0.3 Neut % (Auto) 69.9 Lymph % (Auto) 17.8 [place] % (Auto) 10.3 Eos % (Auto) 1.3 Baso % (Auto) 0.4 Neut # (Auto) 5.59 Lymph # (Auto) 1.42 [place] # (Auto) 0.82 H Eos # (Auto) 0.10 Baso # (Auto) 0.03 Immature Gran # (Auto) 0.02 PT 11.3 INR 1.1 Sodium 138 Potassium 3.6 Chloride 102 Carbon Dioxide 26 Anion Gap 10 BUN 10 Creatinine 0.65 Est Cr Clr Drug Dosing 65.2 Est GFR ( Amer) 93.8 Est GFR (Non-Af Amer) 81.0 BUN/Creatinine Ratio 15.4 Glucose 140 H Calcium 10.0 Magnesium 1.9 Total Bilirubin 0.7 AST 14 ALT 10 Alkaline Phosphatase 72 Troponin I High Sens 19.6 H Total Protein 7.5 Albumin 4.4 Globulin 3.1 Albumin/Globulin Ratio 1.4 TSH Urine Color Urine Appearance Urine pH Ur Specific [place] Urine Protein Urine Glucose (UA) Urine Ketones Urine Blood Urine Nitrite Urine Bilirubin Urine Urobilinogen Ur Leukocyte Esterase Urine WBC (Auto) Urine RBC (Auto) U Hyaline Cast (Auto) U Epithel Cells (Auto) Urine Bacteria (Auto) Urine Yeast SARS-CoV-2, RNA, NAAT Diagnostic Findings Chest X-Ray 09/06/22 10:03 XR chest 1V portable HISTORY: weakness COMPARISON: Chest 02/15/2013. FINDINGS: No pneumothorax. No pleural effusions. The cardiac silhouette remains mildly enlarged. The left-sided pacemaker/defibrillator. Left basilar linear densities favor subsegmental atelectasis. Otherwise, no focal lung consolidations to suggest a pneumonia. No evidence for pulmonary edema. Degenerative changes again noted within the shoulders. IMPRESSION: No significant change compared to the prior study. No acute process. ACT 112: Negative or not required by law. Electronically signed by: Valdo Pretty M.D. 09/06/2022 11:[address] 09/06/22 10:03 CT SCAN OF THE BRAIN WITHOUT IV CONTRAST CLINICAL HISTORY: Fall. COMPARISON STUDY: CT of the brain dated 04/06/2013. TECHNIQUE: Unenhanced axial CT scan of the brain is performed from the vertex to the skull base. A dose lowering technique was utilized adhering to the principles of ALARA. CT DOSE: 1073.15 mGy.cm FINDINGS: Brain parenchyma: There is age-related involutional change noting mild subcortical and periventricular microangiopathic disease. There is no hemorrhage, mass effect, or evidence of acute territorial ischemia by CT criteria. Hardin-white matter differentiation is preserved. No extra-axial fluid collection is seen. Ventricles, sulci, cisterns: Prominent secondary to involutional change. Intracranial vasculature: There is atherosclerotic calcification of the cavernous carotid arteries. Calvarium: The skeletal structures are osteopenic. No depressed calvarial fracture is seen. Sinuses and mastoids: The visualized paranasal sinuses are clear. The mastoid air cells are well pneumatized. Orbits: The bony orbits are grossly intact. There are bilateral ocular lens implants. IMPRESSION: There is no hemorrhage, mass effect, or evidence of acute territorial ischemia by CT criteria. ACT 112: Negative or not required by law. Electronically signed by: Ceferino Poole M.D. 09/06/2022 12:39 PM Shoulder X-Ray 09/06/22 10:03 XR shoulder LT min 2V routine CLINICAL HISTORY: Left shoulder pain s/p fall COMPARISON: None FINDINGS: Left subclavian pacer is partially imaged. Alignment of the left shoulder is anatomic. No acute fracture. There are no osseous lesions. There is possible calcific tendinitis of the left rotator cuff. Joint body could appear similar. Moderate AC joint osteoarthritis is present. There is mild glenohumeral joint osteoarthritis. IMPRESSION: No acute fracture or dislocation within the left shoulder. ACT 112: Negative or not required by law. Electronically signed by: Jarett Chiu M.D. 09/06/2022 10:[address] 09/06/22 10:08 CT OF THE CERVICAL SPINE WITHOUT CONTRAST CLINICAL HISTORY: s/p fall COMPARISON STUDY: Cervical spine CT February 15, 2013. TECHNIQUE: Helical axial images of the cervical spine were obtained without IV contrast. Sagittal and coronal reconstructions were viewed. Automated exposure control was utilized for the study. A dose lowering technique was utilized adhering to the principles of ALARA. FINDINGS: Asymmetric enlargement of the right thyroid lobe is again noted. This is unchanged. Reversal of the cervical lordosis is unchanged. Note is made of an acute fracture of the C7 vertebral body with 50% loss of vertebral body height and minimal retropulsion. There is an additional acute nondisplaced fracture of the left superior articulating facet of C7. There is an acute fracture along the inferior endplate of T1 with mild loss of vertebral body height. Fracture extends along anterior aspect of the inferior endplate. In addition, there is an acute appearing fracture of the superior endplate of T2 with mild loss of vertebral body height. Moderate multilevel degenerative changes are present. IMPRESSION: 1. Acute fracture of the C7 vertebral body with 50% loss of vertebral body height and minimal retropulsion. In addition, an acute nondisplaced fracture of the left superior articulating facet of C7. 2. Acute fractures of the inferior endplate of T1 and the superior endplate of T2 with mild loss of vertebral body height. ACT 112: Negative or not required by law. Electronically signed by: Jarett Cihu M.D. 09/06/2022 12:50 PM Code Status & VTE Plan Code Status DNR/DNI-discussed with the patient at bedside Supervising Physician Co-Signing Physician Notes Patient is an 86-year-old female with history of coronary artery disease, cardiomyopathy, hypertension, diabetes and other medical problems presents with history of mechanical fall secondary to tripping over carpet at home. She admits to hitting her neck secondary to the fall causing pain, decreased range of movement secondary to pain. She denies any head trauma, syncopal episode. She also states having some chest discomfort secondary to fall. Please review HPI for complete details of presentation. He was found to be in hypertensive urgency while in ED. Family admits that patient has been having recurrent falls lately. I personally reviewed blood work, imaging studies and EKG. Physical Exam: Vitals signs as noted above General Appearance:Moderately built and nourished, no apparent distress Head: normocephalic, Atraumatic Eyes: normal inspection, EOMI Neck: supple, Trachea midline, +Neck Collar Respiratory/Chest: Normal breath sounds, CTA, No accessory muscle use Cardiovascular: S1, S2, No murmur Abdomen/GI:Soft, Non tender, Bowel sounds present Extremities/Musculoskeletal:normal inspection, no edema Neurologic/Psych:AAOX3, grossly no focal neurological deficits, + hearing impairment Skin: normal color, warm Compression fracture of C7 vertebral T1, T2 fractures Secondary to mechanical fall H/O recurrent falls Pain control Continue neck collar Consulted orthopedics PT OT, fall precautions Abnormal urinalysis Possible urinary tract infection Empirically started on Rocephin Follow-up urine culture Hypertensive urgency Likely situational secondary to pain PVCs Continue metoprolol, added losartan IV hydralazine as needed Consider echo if needed I personally reviewed the record. Patient is interviewed and examined at bedside. Patient's care is coordinated with Amy Weir PA-C. Please refer to the documentation above for details of patient's presentation and for discussion of other issues. (1) Compression fracture of C7 vertebra Encounter type: initial encounter Qualified Code(s): S12.690A - Other displaced fracture of seventh cervical vertebra, initial encounter for closed fracture (2) Compression fracture of thoracic vertebra Encounter type: initial encounter Thoracic vertebra fracture level: T1 Qualified Code(s): S22.010A - Wedge compression fracture of first thoracic vertebra, initial encounter for closed fracture
[2022-09-06] MEDS ORDERED: METOPROLOL TARTRATE 25 MG TAB PO STA (15:46)
[2022-09-06] MEDS ORDERED: ACETAMINOPHEN 325 MG TAB PO STA (16:01)
[2022-09-06] MEDS ORDERED: POTASSIUM CHLORIDE CRTAB 20 MEQ TABCR PO STA (16:02)
[2022-09-06] MEDS: LIDOCAINE 5% 1 PATCH TD SCH (16:47)
[2022-09-06] MEDS ORDERED: cefTRIAXone SODIUM 1,000 MG in DEXTROSE 5% AD-VAN 50 ML IV SCH (18:07)
[2022-09-06] MEDS ORDERED: ONDANSETRON INJ 2 MG/ML 2 ML VIAL IV PRN (18:07)
[2022-09-06] MEDS ORDERED: hydrALAZINE HCL 20 MG/ML VIAL IV PRN (18:07)
[2022-09-06] MEDS ORDERED: CALCIUM CARBONATE VITAMIN D3 PO SCH (21:00)
[2022-09-06] MEDS ORDERED: [UNRECOGNIZED DRUG - OTHER] PO SCH (21:00)
[2022-09-06] MEDS: CALCIUM 600MG + VIT D 400 IU TAB PO SCH (21:14)
[2022-09-06] MEDS: METOPROLOL TARTRATE 25 MG TAB PO SCH (21:14)
[2022-09-06] MEDS: ATORVASTATIN 40 MG TAB PO SCH (21:14)
[2022-09-06] MEDS ORDERED: oxyCODONE HCL IR 5 MG TAB (IMMEDIATE RELEASE) PO STA (23:02)
[2022-09-06] MEDS: ACETAMINOPHEN 325 MG TAB PO SCH (23:37)
[2022-09-06] MEDS: NYSTATIN POWDER 15GM BTL EXT SCH (23:38)
[2022-09-07 06:56] LABS: Hemoglobin 15.6 g/dl (12.0-16.0); Mean Corpuscular Hemoglobin 33.1 pg (25.0-34.0); Mean Corpuscular Hgb Conc 34.7 g/dL (32.0-36.0); Mean Corpuscular Volume 95.3 fL (80.0-100.0); Mean Platelet Volume 9.8 fL (9.4-12.4); Platelet Count 294 K/uL (130-400); RDW Coefficient of Variation 12.5 % (11.5-14.5); RDW Standard Deviation 43.8 fL (36.4-46.3); Red Blood Count 4.72 M/uL (4.20-5.40); White Blood Count 13.74 K/ul (4.8-10.8)
[2022-09-07 07:22] LABS: BUN Creatinine Ratio 20.8 (10-20); Calcium 9.6 mg/dl (8.5-10.1); Creatinine Clr Calc Pharmacy 89.9 ml/min; Est GFR (African American) 100.3 ml/min; Est GFR (Non-African American) 86.6 ml/min; Magnesium 1.9 mg/dl (1.7-2.4); Phosphorus 3.4 mg/dl (2.5-4.9); Potassium 3.9 mmol/L (3.5-5.1)
[2022-09-07 07:34] LABS: Troponin I High Sensitivity 42.8 pg/ml (0-14)
[2022-09-07] MEDS: CLOPIDOGREL BISULFATE 75 MG TAB PO SCH (08:06)
[2022-09-07] MEDS: CALCIUM 600MG + VIT D 400 IU TAB PO SCH ×3 (08:06→20:01)
[2022-09-07] MEDS: SPIRONOLACTONE 12.5 MG TAB PO SCH (08:07)
[2022-09-07] MEDS: FLUoxetine HCL 20 MG CAP PO SCH (08:07)
[2022-09-07] MEDS: MULTIVITAMIN TAB PO SCH (08:07)
[2022-09-07] MEDS: ASPIRIN 81 MG ECTAB PO SCH (08:08)
[2022-09-07] MEDS: ACETAMINOPHEN 325 MG TAB PO SCH ×2 (08:08→16:43)
[2022-09-07] MEDS: FUROSEMIDE 20 MG TAB PO SCH (08:09)
[2022-09-07] MEDS: METOPROLOL TARTRATE 25 MG TAB PO SCH ×2 (08:09→20:01)
[2022-09-07] MEDS: LIDOCAINE 5% 1 PATCH TD SCH (08:09)
[2022-09-07] MEDS: NYSTATIN POWDER 15GM BTL EXT SCH ×2 (08:09→20:02)
[2022-09-07] MEDS: LOSARTAN POTASSIUM 25 MG TAB PO SCH (08:09)
[2022-09-07] MEDS ORDERED: hydrALAZINE HCL 20 MG/ML VIAL IV PRN (09:03)
--- NOTE | 2022-09-07 09:55 | Consultation ---
Date of Consultation September 07, 2022 Assessment & Plan (1) Compression fracture of C7 vertebra: Dr. Mederos has reviewed CT scans. She has acute C7 vertebral body fracture, T1 and T2 superior endplate compression fracture status post fall 3 days ago. Treatment is conservative. The recommendation is that she wear a rigid [place] J collar at all times with the exception of being able to remove this when bathing and eating. No lifting over 5 pounds. Ambulate ad keara. Orthopedically stable for discharge. I asked that she follow-up in our office in roughly 2 weeks for updated x-rays. (2) Compression fracture of thoracic vertebra: See above History of Present Illness Reason for Consultation: Cervical and thoracic compression fracture status post fall Attending Physician: Santiago Perkins MD History of Present Illness This is a pleasant 86-year-old female that sustained a fall 3 days ago while at home. She does not really recall the events but states she just tripped and fell. She does not believe she hit her head. No loss of consciousness. She came to the ER yesterday and was subsequently admitted. This morning she reports no neck pain. She denies any upper extremity pain, paresthesia, numbness or weakness. She lives at home with her . She states she over the past several months she has been using his walker more often due to balance issues. Allergies Allergy/AdvReac Type Severity Reaction Status Date / Time Penicillins Allergy Mild Verified 07/14/22 10:10 Bactrim Allergy Unknown As per H&P Verified 12/01/14 12:06 Dr Zazueta meclofenamic acid Allergy Unknown Verified 07/14/22 10:10 propoxyphene Allergy Unknown Verified 07/14/22 10:10 sulfamethoxazole Allergy Unknown As per H&P Verified 07/14/22 10:10 Dr Zazueta trimethoprim Allergy Unknown As per H&P Verified 07/14/22 10:10 Dr Zazueta Home Medications Medication Instructions Recorded Confirmed Type aspirin 81 mg tablet,delayed 81 mg PO DAILY 04/22/19 09/06/22 History release (Mel Low Dose Aspirin) atorvastatin 40 mg tablet 40 mg PO QPM 04/22/19 09/06/22 History clopidogrel 75 mg tablet 75 mg PO DAILY #90 tabs 04/22/19 09/06/22 Rx furosemide 20 mg tablet 20 mg PO DAILY 04/22/19 09/06/22 History metoprolol tartrate 25 mg tablet 25 mg PO BID 04/22/19 09/06/22 History multivitamin 1 tab PO DAILY 04/22/19 09/06/22 History nitroglycerin 0.4 mg sublingual 0.4 mg sublingual Q5M PRN Chest 04/22/19 09/06/22 History tablet Pain spironolactone 25 mg tablet 12.5 mg PO DAILY 04/22/19 09/06/22 History calcium carbonate 500 mg-vitamin 1 tab PO TID 09/06/22 09/06/22 History D3 5 mcg (200 unit) tablet (Calcium 500 + D) fluoxetine 20 mg capsule 20 mg PO QAM 09/06/22 09/06/22 History Patient History Medical History Biventricular ICD (implantable cardioverter-defibrillator) in place CAD (coronary artery disease) Cardiomyopathy Depression Dyslipidemia History of myocardial infarction History of pacemaker Hypercholesterolemia Hypertension ICD (implantable cardioverter-defibrillator), single, in situ Sensorineural hearing loss of both ears Surgical History History of implantable cardioverter-defibrillator (ICD) placement Family History Other Heart disease Stroke Social History Smoking Status: Never smoker Hx Alcohol Use: No Hx Substance Use: No Preferred Language: Kazakh Communication Ability: Effective Stack Matcher Required: No Beliefs That Will Affect Care: None marital status: Current Living Situation: Spouse current occupational status: retired Feels Safe at Home: Yes Safety Concerns: Feels Safe At This Time Assistive Devices: Cane and Walker Review of Systems Review of Systems: All systems reviewed & are unremarkable except as noted in HPI & below Physical Exam Physical Exam: She is alert and oriented x3 She is in no acute distress [place] J collar is intact She is nontender to palpation about the midline lower cervical and thoracic area. No palpable step-offs. She has 5/5 bilater finger intrinsics, finger extensors, finger flexors, wrist extensors, wrist flexors, biceps, triceps, deltoid I am unable to elicit any upper motor neuron signs. Constitutional: average body habitus Eyes: normal visual lopez by confrontation ENMT: external ear and nose normal, oropharynx normal Neck: normal visual inspection Respiratory: normal respiratory effort Cardiovascular: Extremities: normal capillary refill Gastrointestinal (Abdomen): Inspection/Auscultation: abdomen normal to inspe ction Musculoskeletal: Spine: + limited cervical ROM Extremities: extremities normal to inspection and strength 5/5 throughout Skin: no rashes, warm and dry Neurologic: normal touch/pain/proprioception and moves all extremities Psychiatric: A+Ox3, euthymic affect Results & Data Vital Signs (Past 12 Hours) Vital Signs Temp Pulse Pulse Resp BP Pulse Ox O2 Del Method 09/07/22 09:26 84 09/07/22 09:11 135/75 09/07/22 07:25 36.7 C 101 H 20 195/109 H 94 Room Air 09/07/22 03:26 36.5 C 70 18 169/87 H 94 Room Air 09/06/22 22:04 74 09/06/22 23:04 36.5 C 77 18 177/96 H 93 Room Air Diagnostic Findings [place], [place] [phone] CT Scan Report Patient:RCIKY WHITMORE Admit Date:09/06/22 MR#:[id number] Address1:[address] [place] [address] Acct ID:[id number] Address2: Date:[address] [facility] Zip:[place] [address] Age:86 Location:ED Sex:F Room/Bed: Att Phy: Diagnosis:FALL, L ARM PAIN Mandy Phy:Coleman Gonzales MD Service Date:09/06/22 [facility] Phy: Interpreting Phy:Jarett Chiu MDAdmit Phy: Ordering Phy:Mauri Miller PA cc: ~ CT OF THE CERVICAL SPINE WITHOUT CONTRAST CLINICAL HISTORY: s/p fall COMPARISON STUDY: Cervical spine CT February 15, 2013. TECHNIQUE: Helical axial images of the cervical spine were obtained without IV contrast. Sagittal and coronal reconstructions were viewed. Automated exposure control was utilized for the study. A dose lowering technique was utilized adhering to the principles of ALARA. FINDINGS: Asymmetric enlargement of the right thyroid lobe is again noted. This is unchanged. Reversal of the cervical lordosis is unchanged. Note is made of an acute fracture of the C7 vertebral body with 50% loss of vertebral body height and minimal retropulsion. There is an additional acute nondisplaced fracture of the left superior articulating facet of C7. There is an acute fracture along the inferior endplate of T1 with mild loss of vertebral body height. Fracture extends along anterior aspect of the inferior endplate. In addition, there is an acute appearing fracture of the superior endplate of T2 w ith mild loss of vertebral body height. Moderate multilevel degenerative changes are present. IMPRESSION: 1. Acute fracture of the C7 vertebral body with 50% loss of vertebral body height and minimal retropulsion. In addition, an acute nondisplaced fracture of the left superior articulating facet of C7. 2. Acute fractures of the inferior endplate of T1 and the superior endplate of T2 with mild loss of vertebral body height. ACT 112: Negative or not required by law. Electronically signed by: Jarett Chiu M.D. 09/06/2022 12:50 PM Dictated:09/06/22 1240 Transcribed: 09/06/22 1247 (1) Compression fracture of C7 vertebra Encounter type: initial encounter Qualified Code(s): S12.690A - Other displaced fracture of seventh cervical vertebra, initial encounter for closed fracture (2) Compression fracture of thoracic vertebra Encounter type: initial encounter Thoracic vertebra fracture level: T1 Qualified Code(s): S22.010A - Wedge compression fracture of first thoracic vertebra, initial encounter for closed fracture
[2022-09-07] MEDS ORDERED: cefTRIAXone SODIUM 2,000 MG in DEXTROSE 5% 50 ML IV SCH (13:30)
--- NOTE | 2022-09-07 16:37 | Hospitalist Progress Note ---
Date of Service September 07, 2022 Assessment & Plan (1) Compression fracture of C7 vertebra: Plan: Status post fall about 2 days ago -Imaging of cervical spine x-ray reviewed showing an acute C7 compression fracture with 50% loss of vertebral body and minimal retropulsion, and acute nondisplaced fracture of the left superior articulating facet of C7, inferior T1 and superior T2 endplate fractures. -Discussion with the ER reported Dr. Violetta Wilson notes these fractures are nonoperable -Pain control with Tylenol 650 every 8, will add additional IV med if needed for breakthrough pain, lidocain patch -PT/OT consults -Ortho spine consult- continue [place] J-collar until they are seen -Allow diet as this is nonsurgical -Denies any neuro symptoms in the extremities -Awaiting Dr. Mederos to see the patient -Likely discharge tomorrow with follow-up of with the Ortho as mentioned in Ortho follow-up notes (2) Compression fracture of thoracic vertebra: Plan: -Acute fracture of the inferior endplate of T1 and superior endplate of T2 with mild loss of vertebral height Ortho evaluation as above (3) UTI (urinary tract infection): Plan: - UA appears to be grossly infected, follow urine culture, possibly adding to imbalance and fall which occurred as per HPI - IV Rocephin started in the ER, continue - WBC 7.98, afebrile -Await urine culture and sensitivity (4) CAD (coronary artery disease): (5) Cardiomyopathy: Plan: No chest pain and no palpitation (6) Hypertension: (7) Hypercholesterolemia: (8) Biventricular ICD (implantable cardioverter-defibrillator) in place: Plan: - Last Echo is from September 2008 where she had LVEF of 30% - Trop 19.7, trend another set now -Order metoprolol 25 mg now as she missed her morning medications, continue spironolactone and Lasix tomorrow morning -We will start new medication, losartan 25 mg tomorrow morning -Patient appears euvolemic, no signs of fluid overload -IV hydralazine as needed with parameters for hypertension (9) Depression: Plan: - Cont prozac DVT PPx: - teds, scds, Plavix and aspirin CODE: DNR/DNI Dispo: From home, likely to remain in the hospital x 1-2 days Admission and Anticipated Discharge Date Admission Date: September 06, 2022 Subjective 09/07/2022 The patient was seen and examined in medical telemetry unit She remains stable and denies any significant pain in the neck at rest She has the cervical collar in situ Denies any neurologic symptoms in the extremities Review of Systems Review of Systems: All systems reviewed and are unremarkable except as noted below Neurologic: No neurodeficit in the extremities Physical Exam 2 Physical Exam: Lying in bed without any acute distress Constitutional: well developed, well nourished, + ill appearing and average body habitus Eyes: PERRL, conjunctivae normal, anicteric sclerae ENMT: external ear and nose normal, oropharynx normal Neck: trachea midline, no thyromegaly Respiratory: no respiratory distress Auscultation: lungs clear to auscultation bilaterally Cardiovascular: Rate/Rhythm: regular rate and regular rhythm; not tachycardic Heart Sounds: normal S1, normal S2 and + murmur Extremities: no edema Gastrointestinal (Abdomen): Inspection/Auscultation: normal bowel sounds; abdomen not distended Percussion/Palpation: abdomen soft; abdomen nontender Musculoskeletal: No acute arthritis involving any joint Neurologic: Alert, awake and oriented x3. No focal sensory or motor deficit appreciated Psychiatric: A+Ox3, euthymic affect Lymphatic: no cervical or axillary lymphadenopathy Results & Data Results & Data Vital Signs (Past 12 Hours) Vital Signs Temp Pulse Pulse Resp BP BP Pulse Ox 09/07/22 15:43 36.4 C L 69 19 106/73 90 09/07/22 15:35 96 H 09/07/22 11:39 36.8 C 82 19 161/74 H 93 09/07/22 09:26 84 09/07/22 09:11 135/75 09/07/22 07:25 36.7 C 101 H 20 195/109 H 94 O2 Del Method 09/07/22 15:43 Room Air 09/07/22 15:35 09/07/22 11:39 Room Air 09/07/22 09:26 09/07/22 09:11 09/07/22 07:25 Room Air Laboratory Results Short CBC 09/07/22 Range/Units 05:51 WBC 13.74 H (4.8-10.8) K/ul Hgb 15.6 (12.0-16.0) g/dl Hct 45.0 (37.0-47.0) % Plt Count 294 (130-400) K/uL BMP 09/07/22 05:51 Sodium 138 Potassium 3.9 Chloride 105 Carbon Dioxide 22 BUN 11 Creatinine 0.53 L Glucose 139 H Calcium 9.6 Medications Administered Current Inpatient Medications Acetaminophen (Acetaminophen 325 Mg Tab) 650 mg PO Q8H [facility] Stop: 10/06/22 18:29 Last Admin: 09/07/22 08:08 Dose: 650 mg Aspirin (Aspirin 81 Mg Ectab) 81 mg PO DAILY [facility] Stop: 10/07/22 08:59 Last Admin: 09/07/22 08:08 Dose: 81 mg Atorvastatin Calcium (Atorvastatin 40 Mg Tab) 40 mg PO QPM [facility] Stop: 10/06/22 20:59 Last Admin: 09/06/22 21:14 Dose: 40 mg Calcium/Vitamin D (Calcium 600mg + Vit D 400 Iu Tab) 1 tab PO TID [facility] Stop: 10/06/22 20:59 Last Admin: 09/07/22 13:24 Dose: Not Given Clopidogrel Bisulfate (Clopidogrel Bisulfate 75 Mg Tab) 75 mg PO DAILY [facility] Stop: 10/07/22 08:59 Last Admin: 09/07/22 08:06 Dose: 75 mg Fluoxetine HCl (Fluoxetine Hcl 20 Mg Cap) 20 mg PO QAM [facility] Stop: 10/07/22 08:59 Last Admin: 09/07/22 08:07 Dose: 20 mg Furosemide (Furosemide 20 Mg Tab) 20 mg PO DAILY [facility] Stop: 10/07/22 08:59 Last Admin: 09/07/22 08:09 Dose: 20 mg Hydralazine HCl (Hydralazine Hcl 20 Mg/Ml Vial) 10 mg IV Q6H PRN PRN Reason: hypertension Stop: 10/06/22 18:06 Ceftriaxone Sodium 2,000 mg/ (Dextrose) 70 mls @ 140 mls/hr IV Q24H [facility] Stop: 09/17/22 13:29 Last Infusion: 09/07/22 14:37 Dose: Infused Lidocaine (Lidocaine 5% 1 Patch) 1 patch TD QAM [facility] Stop: 10/06/22 16:14 Last Admin: 09/07/22 08:09 Dose: Not Given Losartan Potassium (Losartan Potassium 25 Mg Tab) 25 mg PO QAM [facility] Stop: 10/07/22 08:59 Last Admin: 09/07/22 08:09 Dose: 25 mg Metoprolol Tartrate (Metoprolol Tartrate 25 Mg Tab) 25 mg PO BID [facility] Stop: 10/06/22 20:59 Last Admin: 09/07/22 08:09 Dose: 25 mg Miscellaneous (Remove Lidoderm Patch) 1 each N/A DAILY@2100 [facility] Stop: 10/06/22 20:59 Last Admin: 09/06/22 20:58 Dose: 1 each Multivitamins (Multivitamin Tab) 1 tab PO DAILY [facility] Stop: 10/07/22 08:59 Last Admin: 09/07/22 08:07 Dose: 1 tab Nystatin (Nystatin Powder 15gm Btl) 1 appln EXT BID [facility] Stop: 10/06/22 23:14 Last Admin: 09/07/22 08:09 Dose: 1 appln Ondansetron HCl (Ondansetron Inj 2 Mg/Ml 2 Ml Vial) 4 mg IV Q4H PRN PRN Reason: Nausea And Vomiting Stop: 10/06/22 18:06 Spironolactone (Spironolactone 12.5 Mg Tab) 12.5 mg PO DAILY [facility] Stop: 10/07/22 08:59 Last Admin: 09/07/22 08:07 Dose: 12.5 mg (1) Compression fracture of C7 vertebra Encounter type: initial encounter Qualified Code(s): S12.690A - Other displaced fracture of seventh cervical vertebra, initial encounter for closed fracture (2) Compression fracture of thoracic vertebra Encounter type: initial encounter Thoracic vertebra fracture level: T1 Qualified Code(s): S22.010A - Wedge compression fracture of first thoracic vertebra, initial encounter for closed fracture
[2022-09-07] MEDS: ATORVASTATIN 40 MG TAB PO SCH (20:01)
[2022-09-07] MEDS: MELATONIN 3 MG TAB PO PRN (21:47)
[2022-09-08] MEDS: ACETAMINOPHEN 325 MG TAB PO SCH ×3 (05:36→15:43)
[2022-09-08] MEDS: CALCIUM 600MG + VIT D 400 IU TAB PO SCH ×3 (09:20→21:17)
[2022-09-08] MEDS: ASPIRIN 81 MG ECTAB PO SCH (09:20)
[2022-09-08] MEDS: LOSARTAN POTASSIUM 25 MG TAB PO SCH (09:20)
[2022-09-08] MEDS: CLOPIDOGREL BISULFATE 75 MG TAB PO SCH (09:21)
[2022-09-08] MEDS: FUROSEMIDE 20 MG TAB PO SCH (09:21)
[2022-09-08] MEDS: SPIRONOLACTONE 12.5 MG TAB PO SCH (09:22)
[2022-09-08] MEDS: FLUoxetine HCL 20 MG CAP PO SCH (09:22)
[2022-09-08] MEDS: METOPROLOL TARTRATE 25 MG TAB PO SCH ×2 (09:22→21:17)
[2022-09-08] MEDS: NYSTATIN POWDER 15GM BTL EXT SCH ×2 (09:22→21:17)
[2022-09-08] MEDS: MULTIVITAMIN TAB PO SCH (09:22)
[2022-09-08] MEDS: LIDOCAINE 5% 1 PATCH TD SCH (09:22)
[2022-09-08] MEDS: traMADol HCL 50 MG TABLET PO PRN ×2 (09:29→18:33)
[2022-09-08] MEDS: CEFDINIR 300 MG CAP PO SCH ×2 (11:18→21:17)
--- NOTE | 2022-09-08 16:54 | Hospitalist Progress Note ---
Date of Service September 08, 2022 Assessment & Plan (1) Compression fracture of C7 vertebra: Plan: Status post fall about 2 days ago -Imaging of cervical spine x-ray reviewed showing an acute C7 compression fracture with 50% loss of vertebral body and minimal retropulsion, and acute nondisplaced fracture of the left superior articulating facet of C7, inferior T1 and superior T2 endplate fractures. -Discussion with the ER reported Dr. Violetta Wilson notes these fractures are nonoperable -Pain control with Tylenol 650 every 8, will add additional IV med if needed for breakthrough pain, lidocain patch -PT/OT consults -Ortho spine consult- continue [place] J-collar until they are seen -Allow diet as this is nonsurgical -Denies any neuro symptoms in the extremities -Awaiting Dr. Mederos to see the patient -Likely discharge tomorrow with follow-up of with the Ortho as mentioned in Ortho follow-up notes -Has been on Ultram for neck pain -PT and OT recommended rehab (2) Compression fracture of thoracic vertebra: Plan: -Acute fracture of the inferior endplate of T1 and superior endplate of T2 with mild loss of vertebral height Ortho evaluation as above (3) UTI (urinary tract infection): Plan: - UA appears to be grossly infected, follow urine culture, possibly adding to imbalance and fall which occurred as per HPI - IV Rocephin started in the ER, continue - WBC 7.98, afebrile -Await urine culture and sensitivity -Has been getting oral Cefdinir to continue for 5 more days (4) CAD (coronary artery disease): (5) Cardiomyopathy: Plan: No chest pain and no palpitation (6) Hypertension: (7) Hypercholesterolemia: (8) Biventricular ICD (implantable cardioverter-defibrillator) in place: Plan: - Last Echo is from September 2008 where she had LVEF of 30% - Trop 19.7, trend another set now -Order metoprolol 25 mg now as she missed her morning medications, continue spironolactone and Lasix tomorrow morning -We will start new medication, losartan 25 mg tomorrow morning -Patient appears euvolemic, no signs of fluid overload -IV hydralazine as needed with parameters for hypertension (9) Depression: Plan: - Cont prozac DVT PPx: - teds, scds, Plavix and aspirin CODE: DNR/DNI Dispo: From home, likely to remain in the hospital x 1-2 days Admission and Anticipated Discharge Date Admission Date: September 06, 2022 Subjective 09/07/2022 The patient was seen and examined in medical telemetry unit She remains stable and denies any significant pain in the neck at rest She has the cervical collar in situ Denies any neurologic symptoms in the extremities 09/08/2022 The patient was seen and examined in medical telemetry unit She complains to have neck pain without radiation and no neurological symptoms involving the extremities She will need to go to rehab as per PT and OT evaluation Review of Systems Review of Systems: All systems reviewed and are unremarkable except as noted below Neurologic: No neurodeficit in the extremities Physical Exam Physical Exam: Lying in bed without any acute distress Constitutional: well developed, well nourished, + ill appearing and average body habitus Eyes: PERRL, conjunctivae normal, anicteric sclerae ENMT: external ear and nose normal, oropharynx normal Neck: trachea midline, no thyromegaly Respiratory: no respiratory distress Auscultation: lungs clear to auscultation bilaterally Cardiovascular: Rate/Rhythm: regular rate and regular rhythm; not tachycardic Heart Sounds: normal S1, normal S2 and + murmur Extremities: no edema Gastrointestinal (Abdomen): Inspection/Auscultation: normal bowel sounds; abdomen not distended Percussion/Palpation: abdomen soft; abdomen nontender Musculoskeletal: No acute arthritis involving any joint. Has a cervical collar in situ Neurologic: normal touch/pain/proprioception and moves all extremities; no focal motor deficits Psychiatric: A+Ox3, euthymic affect Lymphatic: no cervical or axillary lymphadenopathy Results & Data Results & Data Vital Signs (Past 12 Hours) Vital Signs Temp Pulse Pulse Resp BP Pulse Ox O2 Del Method 09/08/22 16:31 92 H 09/08/22 15:02 36.8 C 64 20 143/68 H 91 Room Air 09/08/22 11:40 36.2 C L 78 20 126/82 92 Room Air 09/08/22 07:52 75 09/08/22 06:31 36.5 C 64 18 154/84 H 92 Room Air Medications Administered Current Inpatient Medications Acetaminophen (Acetaminophen 325 Mg Tab) 650 mg PO Q8H [facility] Stop: 10/06/22 18:29 Last Admin: 09/08/22 15:43 Dose: 650 mg Aspirin (Aspirin 81 Mg Ectab) 81 mg PO DAILY [facility] Stop: 10/07/22 08:59 Last Admin: 09/08/22 09:20 Dose: 81 mg Atorvastatin Calcium (Atorvastatin 40 Mg Tab) 40 mg PO QPM [facility] Stop: 10/06/22 20:59 Last Admin: 09/07/22 20:01 Dose: 40 mg Calcium/Vitamin D (Calcium 600mg + Vit D 400 Iu Tab) 1 tab PO TID [facility] Stop: 10/06/22 20:59 Last Admin: 09/08/22 11:19 Dose: Not Given Cefdinir (Cefdinir 300 Mg Cap) 300 mg PO BID [facility] Stop: 09/12/22 21:01 Last Admin: 09/08/22 11:18 Dose: 300 mg Clopidogrel Bisulfate (Clopidogrel Bisulfate 75 Mg Tab) 75 mg PO DAILY [facility] Stop: 10/07/22 08:59 Last Admin: 09/08/22 09:21 Dose: 75 mg Fluoxetine HCl (Fluoxetine Hcl 20 Mg Cap) 20 mg PO QAM [facility] Stop: 10/07/22 08:59 Last Admin: 09/08/22 09:22 Dose: 20 mg Furosemide (Furosemide 20 Mg Tab) 20 mg PO DAILY [facility] Stop: 10/07/22 08:59 Last Admin: 09/08/22 09:21 Dose: 20 mg Hydralazine HCl (Hydralazine Hcl 20 Mg/Ml Vial) 10 mg IV Q6H PRN PRN Reason: hypertension Stop: 10/06/22 18:06 Lidocaine (L[facility]oc[facility] 5% 1 Patch) [facility] Stop: 10/06/22 16:14 Last Admin: 09/08/22 09:22 Dose: Not Given Losartan Potassium (Losartan Potassium 25 Mg Tab) 25 mg PO QAM [facility] Stop: 10/07/22 08:59 Last Admin: 09/08/22 09:20 Dose: 25 mg Melatonin (Melatonin 3 Mg Tab) 3 mg PO HS PRN PRN Reason: Sleep Stop: 10/07/22 20:39 Last Admin: 09/07/22 21:47 Dose: 3 mg Metoprolol Tartrate (Metoprolol Tartrate 25 Mg Tab) 25 mg PO BID [facility] Stop: 10/06/22 20:59 Last Admin: 09/08/22 09:22 Dose: 25 mg Miscellaneous (Remove Lidoderm Patch) 1 each N/A DAILY@2100 [facility] Stop: 10/06/22 20:59 Last Admin: 09/07/22 21:41 Dose: Not Given Multivitamins (Multivitamin Tab) 1 tab PO DAILY [facility] Stop: 10/07/22 08:59 Last Admin: 09/08/22 09:22 Dose: 1 tab Nystatin (Nystatin Powder 15gm Btl) 1 appln EXT BID [facility] Stop: 10/06/22 23:14 Last Admin: 09/08/22 09:22 Dose: 1 appln Ondansetron HCl (Ondansetron Inj 2 Mg/Ml 2 Ml Vial) 4 mg IV Q4H PRN PRN Reason: Nausea And Vomiting Stop: 10/06/22 18:06 Spironolactone (Spironolactone 12.5 Mg Tab) 12.5 mg PO DAILY [facility] Stop: 10/07/22 08:59 Last Admin: 09/08/22 09:22 Dose: 12.5 mg Tramadol HCl (Tramadol Hcl 50 Mg Tablet) 50 mg PO Q6H PRN PRN Reason: Pain Stop: 10/08/22 09:17 Last Admin: 09/08/22 09:29 Dose: 50 mg (1) Compression fracture of C7 vertebra Encounter type: initial encounter Qualified Code(s): S12.690A - Other displaced fracture of seventh cervical vertebra, initial encounter for closed f racture (2) Compression fracture of thoracic vertebra Encounter type: initial encounter Thoracic vertebra fracture level: T1 Qualified Code(s): S22.010A - Wedge compression fracture of first thoracic vertebra, initial encounter for closed fracture
[2022-09-08] MEDS: MELATONIN 3 MG TAB PO PRN (21:17)
[2022-09-08] MEDS: ATORVASTATIN 40 MG TAB PO SCH (21:17)
--- NOTE | 2022-09-08 23:27 | Electrocardiogram Report ---
Test Reason : Blood Pressure : / mmHG Vent. Rate : 069 BPM Atrial Rate : 069 BPM P-R Int : 132 ms QRS Dur : 138 ms QT Int : 466 ms P-R-T Axes : 082 018 048 degrees QTc Int : 499 ms Atrial-sensed ventricular-paced rhythm with occasional Premature ventricular complexes Abnormal ECG When compared with ECG of 01-DEC-2014 15:40, Premature ventricular complexes are now Present Vent. rate has increased BY 2 BPM Confirmed by Aram Issa ([id number]) on 09/08/2022 11:27:25 PM Referred By: Confirmed By:Aram Issa
[2022-09-09] MEDS: ACETAMINOPHEN 325 MG TAB PO SCH ×4 (00:20→23:33)
[2022-09-09] MEDS: FLUoxetine HCL 20 MG CAP PO SCH (07:52)
[2022-09-09] MEDS: MULTIVITAMIN TAB PO SCH (07:53)
[2022-09-09] MEDS: SPIRONOLACTONE 12.5 MG TAB PO SCH (07:53)
[2022-09-09] MEDS: FUROSEMIDE 20 MG TAB PO SCH (07:54)
[2022-09-09] MEDS: ASPIRIN 81 MG ECTAB PO SCH (07:54)
[2022-09-09] MEDS: CLOPIDOGREL BISULFATE 75 MG TAB PO SCH (07:54)
[2022-09-09] MEDS: CALCIUM 600MG + VIT D 400 IU TAB PO SCH ×3 (07:55→20:11)
[2022-09-09] MEDS: CEFDINIR 300 MG CAP PO SCH ×2 (07:55→20:11)
[2022-09-09] MEDS: METOPROLOL TARTRATE 25 MG TAB PO SCH ×2 (07:55→20:11)
[2022-09-09] MEDS: LOSARTAN POTASSIUM 25 MG TAB PO SCH (07:55)
[2022-09-09] MEDS: NYSTATIN POWDER 15GM BTL EXT SCH ×2 (07:56→20:12)
[2022-09-09] MEDS: LIDOCAINE 5% 1 PATCH TD SCH (07:56)
[2022-09-09] MEDS: traMADol HCL 50 MG TABLET PO PRN ×2 (10:52→16:34)
--- NOTE | 2022-09-09 14:10 | Hospitalist Progress Note ---
Date of Service September 09, 2022 Assessment & Plan (1) Compression fracture of C7 vertebra: Plan: Status post fall about 2 days ago -Imaging of cervical spine x-ray reviewed showing an acute C7 compression fracture with 50% loss of vertebral body and minimal retropulsion, and acute nondisplaced fracture of the left superior articulating facet of C7, inferior T1 and superior T2 endplate fractures. -Discussion with the ER reported Dr. Violetta Wilson notes these fractures are nonoperable -Pain control with Tylenol 650 every 8, will add additional IV med if needed for breakthrough pain, lidocain patch -PT/OT consults -Ortho spine consult- continue [place] J-collar until they are seen -Allow diet as this is nonsurgical -Denies any neuro symptoms in the extremities -Awaiting Dr. Mederos to see the patient -Likely discharge tomorrow with follow-up of with the Ortho as mentioned in Ortho follow-up notes -Has been on Ultram for neck pain -PT and OT recommended rehab -Pain is controlled reasonably and awake placement (2) Compression fracture of thoracic vertebra: Plan: -Acute fracture of the inferior endplate of T1 and superior endplate of T2 with mild loss of vertebral height Ortho evaluation as above No required for any surgery and her back brace (3) UTI (urinary tract infection): Plan: - UA appears to be grossly infected, follow urine culture, possibly adding to imbalance and fall which occurred as per HPI - IV Rocephin started in the ER, continue - WBC 7.98, afebrile -Await urine culture and sensitivity -Has been getting oral Cefdinir to continue for 5 more days (4) CAD (coronary artery disease): Plan: No acute cardiac symptom (5) Cardiomyopathy: Plan: No chest pain and no palpitation (6) Hypertension: (7) Hypercholesterolemia: (8) Biventricular ICD (implantable cardioverter-defibrillator) in place: Plan: - Last Echo is from September 2008 where she had LVEF of 30% - Trop 19.7, trend another set now -Order metoprolol 25 mg now as she missed her morning medications, continue spironolactone and Lasix tomorrow morning -We will start new medication, losartan 25 mg tomorrow morning -Patient appears euvolemic, no signs of fluid overload -IV hydralazine as needed with parameters for hypertension (9) Depression: Plan: - Cont prozac DVT PPx: - teds, scds, Plavix and aspirin CODE: DNR/DNI Dispo: From home, likely to remain in the hospital x 1-2 days Admission and Anticipated Discharge Date Admission Date: September 06, 2022 Subjective 09/07/2022 The patient was seen and examined in medical telemetry unit She remains stable and denies any significant pain in the neck at rest She has the cervical collar in situ Denies any neurologic symptoms in the extremities 09/08/2022 The patient was seen and examined in medical telemetry unit She complains to have neck pain without radiation and no neurological symptoms involving the extremities She will need to go to rehab as per PT and OT evaluation 09/09/2022 The the patient was seen and examined in medical telemetry unit She complains to have neck pain without any radiation of pain or any neurodeficit involving the extremities Denies any problem with urine and bowel habit Review of Systems Review of Systems: All systems reviewed and are unremarkable except as noted below Neurologic: No neurodeficit in the extremities Physical Exam Physical Exam: Sitting on a chair without any acute distress and is a status post physical therapy Constitutional: well developed, well nourished, + ill appearing and average body habitus Eyes: PERRL, conjunctivae normal, anicteric sclerae ENMT: external ear and nose normal, oropharynx normal Neck: trachea midline, no thyromegaly Respiratory: no respiratory distress Auscultation: lungs clear to auscultation bilaterally Cardiovascular: Rate/Rhythm: regular rate and regular rhythm; not tachycardic Heart Sounds: normal S1, normal S2 and + murmur Extremities: no edema Gastrointestinal (Abdomen): Inspection/Auscultation: normal bowel sounds; abdomen not distended Percussion/Palpation: abdomen soft; abdomen nontender Musculoskeletal: No acute arthritis involving any of the joint but does have a neck collar Neurologic: normal touch/pain/proprioception and moves all extremities; no focal motor deficits Psychiatric: A+Ox3, euthymic affect Lymphatic: no cervical or axillary lymphadenopathy Results & Data Results & Data Vital Signs (Past 12 Hours) Vital Signs Temp Pulse Pulse Pulse Resp BP BP 09/09/22 12:50 36.6 C 71 23 117/73 09/09/22 13:11 68 09/09/22 13:02 73 09/09/22 09:30 09/09/22 07:00 63 09/09/22 07:29 36.4 C L 78 16 172/79 H 09/09/22 03:33 36.5 C 66 18 143/78 H Pulse Ox O2 Del Method 09/09/22 12:50 89 L Room Air 09/09/22 13:11 93 Room Air 09/09/22 13:02 96 Room Air 09/09/22 09:30 Room Air 09/09/22 07:00 09/09/22 07:29 92 Room Air 09/09/22 03:33 90 Room Air Medications Administered Current Inpatient Medications Acetaminophen (Acetaminophen 325 Mg Tab) 650 mg PO Q8H [facility] Stop: 10/06/22 18:29 Last Admin: 09/09/22 07:53 Dose: 650 mg Aspirin (Aspirin 81 Mg Ectab) 81 mg PO DAILY [facility] Stop: 10/07/22 08:59 Last Admin: 09/09/22 07:54 Dose: 81 mg Atorvastatin Calcium (Atorvastatin 40 Mg Tab) 40 mg PO QPM [facility] Stop: 10/06/22 20:59 Last Admin: 09/08/22 21:17 Dose: 40 mg Calcium/Vitamin D (Calcium 600mg + Vit D 400 Iu Tab) 1 tab PO TID [facility] Stop: 10/06/22 20:59 Last Admin: 09/09/22 07:55 Dose: 1 tab Cefdinir (Cefdinir 300 Mg Cap) 300 mg PO BID [facility] Stop: 09/12/22 21:01 Last Admin: 09/09/22 07:55 Dose: 300 mg Clopidogrel Bisulfate (Clopidogrel Bisulfate 75 Mg Tab) 75 mg PO DAILY [facility] Stop: 10/07/22 08:59 Last Admin: 09/09/22 07:54 Dose: 75 mg Fluoxetine HCl (Fluoxetine Hcl 20 Mg Cap) 20 mg PO QAM [facility] Stop: 10/07/22 08:59 Last Admin: 09/09/22 07:52 Dose: 20 mg Furosemide (Furosemide 20 Mg Tab) 20 mg PO DAILY [facility] Stop: 10/07/22 08:59 Last Admin: 09/09/22 07:54 Dose: 20 mg Hydralazine HCl (Hydralazine Hcl 20 Mg/Ml Vial) 10 mg IV Q6H PRN PRN Reason: hypertension Stop: 10/06/22 18:06 Lidocaine (Lidocaine 5% 1 Patch) 1 patch TD QAM [facility] Stop: 10/06/22 16:14 Last Admin: 09/09/22 07:56 Dose: 1 patch Losartan Potassium (Losartan Potassium 25 Mg Tab) 25 mg PO QAM [facility] Stop: 10/07/22 08:59 Last Admin: 09/09/22 07:55 Dose: 25 mg Melatonin (Melatonin 3 Mg Tab) 3 mg PO HS PRN PRN Reason: Sleep Stop: 10/07/22 20:39 Last Admin: 09/08/22 21:17 Dose: 3 mg Metoprolol Tartrate (Metoprolol Tartrate 25 Mg Tab) 25 mg PO BID [facility] Stop: 10/06/22 20:59 Last Admin: 09/09/22 07:55 Dose: 25 mg Miscellaneous (Remove Lidoderm Patch) 1 each N/A DAILY@2100 [facility] Stop: 10/06/22 20:59 Last Admin: 09/08/22 22:08 Dose: 1 each Multivitamins (Multivitamin Tab) 1 tab PO DAILY [facility] Stop: 10/07/22 08:59 Last Admin: 09/09/22 07:53 Dose: 1 tab Nystatin (Nystatin Powder 15gm Btl) 1 appln EXT BID [facility] Stop: 10/06/22 23:14 Last Admin: 09/09/22 07:56 Dose: 1 appln Ondansetron HCl (Ondansetron Inj 2 Mg/Ml 2 Ml Vial) 4 mg IV Q4H PRN PRN Reason: Nausea And Vomiting Stop: 10/06/22 18:06 Spironolactone (Spironolactone 12.5 Mg Tab) 12.5 mg PO DAILY [facility] Stop: 10/07/22 08:59 Last Admin: 09/09/22 07:53 Dose: 12.5 mg Tramadol HCl (Tramadol Hcl 50 Mg Tablet) 50 mg PO Q6H PRN PRN Reason: Pain Stop: 10/08/22 09:17 Last Admin: 09/09/22 10:52 Dose: 50 mg (1) Compression fracture of C7 vertebra Encounter type: initial encounter Qualified Code(s): S12.690A - Other displaced fracture of seventh cervical vertebra, initial encounter for closed fracture (2) Compression fracture of thoracic vertebra Encounter type: initial encounter Thoracic vertebra fracture level: T1 Qualified Code(s): S22.010A - Wedge compression fracture of first thoracic vertebra, initial encounter for closed fracture
[2022-09-09] MEDS: ATORVASTATIN 40 MG TAB PO SCH (20:11)
[2022-09-09] MEDS: MELATONIN 3 MG TAB PO PRN (20:12)
[2022-09-10] MEDS: traMADol HCL 50 MG TABLET PO PRN ×2 (05:37→13:07)
[2022-09-10] MEDS: ACETAMINOPHEN 325 MG TAB PO SCH (08:28)
[2022-09-10] MEDS: FUROSEMIDE 20 MG TAB PO SCH (08:29)
[2022-09-10] MEDS: CLOPIDOGREL BISULFATE 75 MG TAB PO SCH (08:29)
[2022-09-10] MEDS: SPIRONOLACTONE 12.5 MG TAB PO SCH (08:29)
[2022-09-10] MEDS: METOPROLOL TARTRATE 25 MG TAB PO SCH (08:30)
[2022-09-10] MEDS: CEFDINIR 300 MG CAP PO SCH (08:30)
[2022-09-10] MEDS: MULTIVITAMIN TAB PO SCH (08:30)
[2022-09-10] MEDS: LOSARTAN POTASSIUM 25 MG TAB PO SCH (08:30)
[2022-09-10] MEDS: ASPIRIN 81 MG ECTAB PO SCH (08:31)
[2022-09-10] MEDS: CALCIUM 600MG + VIT D 400 IU TAB PO SCH ×2 (08:31→13:08)
[2022-09-10] MEDS: FLUoxetine HCL 20 MG CAP PO SCH (08:31)
[2022-09-10] MEDS: NYSTATIN POWDER 15GM BTL EXT SCH (08:32)
[2022-09-10] MEDS: LIDOCAINE 5% 1 PATCH TD SCH (08:32)
--- NOTE | 2022-09-10 11:22 | Hospitalist Progress Note ---
Date of Service September 10, 2022 Assessment & Plan (1) Compression fracture of C7 vertebra: Plan: Status post fall about 2 days ago -Imaging of cervical spine x-ray reviewed showing an acute C7 compression fracture with 50% loss of vertebral body and minimal retropulsion, and acute nondisplaced fracture of the left superior articulating facet of C7, inferior T1 and superior T2 endplate fractures. -Discussion with the ER reported Dr. Violetta Wilson notes these fractures are nonoperable -Pain control with Tylenol 650 every 8, will add additional IV med if needed for breakthrough pain, lidocain patch -PT/OT consults -Ortho spine consult- continue [place] J-collar until they are seen -Allow diet as this is nonsurgical -Denies any neuro symptoms in the extremities -Awaiting Dr. Mederos to see the patient -Likely discharge tomorrow with follow-up of with the Ortho as mentioned in Ortho follow-up notes -Has been on Ultram for neck pain -PT and OT recommended rehab -Pain is controlled reasonably and awake placement -Will be transferred to [facility] this afternoon (2) Compression fracture of thoracic vertebra: Plan: -Acute fracture of the inferior endplate of T1 and superior endplate of T2 with mild loss of vertebral height Ortho evaluation as above No required for any surgery and her back brace Denies any back pain and/or radiation of pain (3) UTI (urinary tract infection): Plan: - UA appears to be grossly infected, follow urine culture, possibly adding to imbalance and fall which occurred as per HPI - IV Rocephin started in the ER, continue - WBC 7.98, afebrile -Await urine culture and sensitivity-pansensitive -Has been getting oral Cefdinir to continue for 5 more days (4) CAD (coronary artery disease): Plan: No acute cardiac symptom (5) Cardiomyopathy: Plan: No chest pain and no palpitation (6) Hypertension: (7) Hypercholesterolemia: (8) Biventricular ICD (implantable cardioverter-defibrillator) in place: Plan: - Last Echo is from September 2008 where she had LVEF of 30% - Trop 19.7, trend another set now -Order metoprolol 25 mg now as she missed her morning medications, continue spironolactone and Lasix tomorrow morning -We will start new medication, losartan 25 mg tomorrow morning -Patient appears euvolemic, no signs of fluid overload -IV hydralazine as needed with parameters for hypertension (9) Depression: Plan: - Cont prozac DVT PPx: - teds, scds, Plavix and aspirin CODE: DNR/DNI Dispo: From home, likely to remain in the hospital x 1-2 days She will be discharged to [facility] this afternoon Admission and Anticipated Discharge Date Admission Date: September 06, 2022 Subjective 09/07/2022 The patient was seen and examined in medical telemetry unit She remains stable and denies any significant pain in the neck at rest She has the cervical collar in situ Denies any neurologic symptoms in the extremities 09/08/2022 The patient was seen and examined in medical telemetry unit She complains to have neck pain without radiation and no neurological symptoms involving the extremities She will need to go to rehab as per PT and OT evaluation 09/09/2022 The the patient was seen and examined in medical telemetry unit She complains to have neck pain without any radiation of pain or any neurodeficit involving the extremities Denies any problem with urine and bowel habit 09/10/2022 The patient was seen and examined in medical telemetry unit She has some neck pain but denies any other significant symptoms Denies any numbness or tingling in the extremities and no problem with urine or bowel habit She will be going to [facility] this afternoon Review of Systems Review of Systems: All systems reviewed and are unremarkable except as noted below Musculoskeletal: Minimal pain in the neck Neurologic: No neurodeficit in the extremities Physical Exam Physical Exam: Lying in bed comfortably Constitutional: well developed, well nourished, + ill appearing and average body habitus Eyes: PERRL, conjunctivae normal, anicteric sclerae ENMT: external ear and nose normal, oropharynx normal Neck: trachea midline, no thyromegaly Respiratory: no respiratory distress Auscultation: lungs clear to auscultation bilaterally Cardiovascular: Rate/Rhythm: regular rate and regular rhythm; not tachycardic Heart Sounds: normal S1, normal S2 and + murmur Extremities: no edema Gastrointestinal (Abdomen): Inspection/Auscultation: normal bowel sounds; abdomen not distended Percussion/Palpation: abdomen soft; abdomen nontender Musculoskeletal: Has neck collar in situ. No acute arthritis involving any other joints Neurologic: normal touch/pain/proprioception and moves all extremities; no focal motor deficits Psychiatric: A+Ox3, euthymic affect Lymphatic: no cervical or axillary lymphadenopathy Results & Data Results & Data Vital Signs (Past 12 Hours) Vital Signs Temp Pulse Pulse Pulse Resp BP BP 09/10/22 10:07 36.3 C L 71 60 18 134/77 172/79 H 09/10/22 09:54 09/10/22 07:33 36.3 C L 60 18 134/77 09/10/22 06:51 67 09/10/22 03:05 36.6 C 80 18 154/87 H 09/10/22 00:00 Pulse Ox Pulse Ox O2 Del Method O2 Del Method 09/10/22 10:07 95 09/10/22 09:54 Room Air 09/10/22 07:33 95 Room Air 09/10/22 06:51 09/10/22 03:05 93 Room Air 09/10/22 00:00 94 Room Air Medications Administered Current Inpatient Medications Acetaminophen (Acetaminophen 325 Mg Tab) 650 mg PO Q8H [facility] Stop: 10/06/22 18:29 Last Admin: 09/10/22 08:28 Dose: 650 mg Aspirin (Aspirin 81 Mg Ectab) 81 mg PO DAILY [facility] Stop: 10/07/22 08:59 Last Admin: 09/10/22 08:31 Dose: 81 mg Atorvastatin Calcium (Atorvastatin 40 Mg Tab) 40 mg PO QPM [facility] Stop: 10/06/22 20:59 Last Admin: 09/09/22 20:11 Dose: 40 mg Calcium/Vitamin D (Calcium 600mg + Vit D 400 Iu Tab) 1 tab PO TID [facility] Stop: 10/06/22 20:59 Last Admin: 09/10/22 08:31 Dose: 1 tab Cefdinir (Cefdinir 300 Mg Cap) 300 mg PO BID [facility] Stop: 09/12/22 21:01 Last Admin: 09/10/22 08:30 Dose: 300 mg Clopidogrel Bisulfate (Clopidogrel Bisulfate 75 Mg Tab) 75 mg PO DAILY [facility] Stop: 10/07/22 08:59 Last Admin: 09/10/22 08:29 Dose: 75 mg Fluoxetine HCl (Fluoxetine Hcl 20 Mg Cap) 20 mg PO QAM [facility] Stop: 10/07/22 08:59 Last Admin: 09/10/22 08:31 Dose: 20 mg Furosemide (Furosemide 20 Mg Tab) 20 mg PO DAILY [facility] Stop: 10/07/22 08:59 Last Admin: 09/10/22 08:29 Dose: 20 mg Hydralazine HCl (Hydralazine Hcl 20 Mg/Ml Vial) 10 mg IV Q6H PRN PRN Reason: hypertension Stop: 10/06/22 18:06 Lidocaine (Lidocaine 5% 1 Patch) 1 patch TD QAM [facility] Stop: 10/06/22 16:14 Last Admin: 09/10/22 08:32 Dose: 1 patch Losartan Potassium (Losartan Potassium 25 Mg Tab) 25 mg PO QAM [facility] Stop: 10/07/22 08:59 Last Admin: 09/10/22 08:30 Dose: 25 mg Melatonin (Melatonin 3 Mg Tab) 3 mg PO HS PRN PRN Reason: Sleep Stop: 10/07/22 20:39 Last Admin: 09/09/22 20:12 Dose: 3 mg Metoprolol Tartrate (Metoprolol Tartrate 25 Mg Tab) 25 mg PO BID [facility] Stop: 10/06/22 20:59 Last Admin: 09/10/22 08:30 Dose: 25 mg Miscellaneous (Remove Lidoderm Patch) 1 each N/A DAILY@2100 [facility] Stop: 10/06/22 20:59 Last Admin: 09/09/22 20:12 Dose: 1 each Multivitamins (Multivitamin Tab) 1 tab PO DAILY [facility] Stop: 10/07/22 08:59 Last Admin: 09/10/22 08:30 Dose: 1 tab Nystatin (Nystatin Powder 15gm Btl) 1 appln EXT BID [facility] Stop: 10/06/22 23:14 Last Admin: 09/10/22 08:32 Dose: 1 appln Ondansetron HCl (Ondansetron Inj 2 Mg/Ml 2 Ml Vial) 4 mg IV Q4H PRN PRN Reason: Nausea And Vomiting Stop: 10/06/22 18:06 Spironolactone (Spironolactone 12.5 Mg Tab) 12.5 mg PO DAILY [facility] Stop: 10/07/22 08:59 Last Admin: 09/10/22 08:29 Dose: 12.5 mg Tramadol HCl (Tramadol Hcl 50 Mg Tablet) 50 mg PO Q6H PRN PRN Reason: Pain Stop: 10/08/22 09:17 Last Admin: 09/10/22 05:37 Dose: 50 mg (1) Compression fracture of C7 vertebra Encounter type: initial encounter Qualified Code(s): S12.690A - Other displaced fracture of seventh cervical vertebra, initial encounter for closed fracture (2) Compression fracture of thoracic vertebra Encounter type: initial encounter Thoracic vertebra fracture level: T1 Qualified Code(s): S22.010A - Wedge compression fracture of first thoracic vertebra, initial encounter for closed fracture
--- NOTE | 2022-09-10 16:57 | Discharge Summary ---
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 She fell and hit her neck, and had immediate pain but at that time she refused to come to the hospital. Since then her pain worsened. reports that pt has use tylenol, Salonpas patches, and Aspercreme at home to control the pain. She also admits that the front of her chest hurts since she fell, but denies sha rp stabbing chest pain or shortness of breath. Prior to the fall she did not use assistive device for ambulation, but since has been using a cane to help her get around the house. Here in the ER and patient is found to have a dirty UA, suspected urinary tract infection. An acute C7 compression fracture with 50% loss of vertebral body and minimal retropulsion, and acute nondisplaced fracture of the left superior articulating facet of C7, inferior T1 and superior T2 endplate fractures. Third troponin is found to be mildly elevated at 19.6. Admission Exam Per Admitting Provider Vitals signs as noted above General Appearance:Moderately built and nourished, no apparent distress Head: normocephalic, Atraumatic Eyes: normal inspection, EOMI Neck: supple, Trachea midline, +Neck Collar Respiratory/Chest: Normal breath sounds, CTA, No accessory muscle use Cardiovascular: S1, S2, No murmur Abdomen/GI:Soft, Non tender, Bowel sounds present Extremities/Musculoskeletal:normal inspection, no edema Neurologic/Psych:AAOX3, grossly no focal neurological deficits, + hearing impairment Skin: normal color, warm Principal Diagnosis Status post fall with compression fracture of C7 vertebra, inferior endplate of T1 and superior endplate of T2 fracture with mild loss of vertebral height, UTI, stable CAD Discharge Exam Lying in bed comfortably Constitutional well developed, well nourished, + ill appearing and average body habitus Eyes PERRL, conjunctivae normal, anicteric sclerae ENMT external ear and nose normal, oropharynx normal Neck trachea midline, no thyromegaly Respiratory no respiratory distress Auscultation: lungs clear to auscultation bilaterally Cardiovascular Rate/Rhythm: regular rate and regular rhythm; not tachycardic Heart Sounds: normal S1, normal S2 and + murmur Extremities: no edema Gastrointestinal (Abdomen) Inspection/Auscultation: normal bowel sounds; abdomen not distended Percussion/Palpation: abdomen soft; abdomen nontender Neurologic normal touch/pain/proprioception and moves all extremities; no focal motor deficits Psychiatric A+Ox3, euthymic affect Lymphatic no cervical or axillary lymphadenopathy Discharge Data Allergies Allergy/AdvReac Type Severity Reaction Status Date / Time Penicillins Allergy Mild Verified 07/14/22 10:10 Bactrim Allergy Unknown As per H&P Verified 12/01/14 12:06 Dr Zazueta meclofenamic acid Allergy Unknown Verified 07/14/22 10:10 propoxyphene Allergy Unknown Verified 07/14/22 10:10 sulfamethoxazole Allergy Unknown As per H&P Verified 07/14/22 10:10 Dr Zazueta trimethoprim Allergy Unknown As per H&P Verified 07/14/22 10:10 Dr Zazueta Consultations 09/06/22 15:23 Consult Orthopedic Surgery Routine Ordered Studies 09/06/22 10:03 CT head/brain wo con Stat 09/06/22 10:08 CT cervical spine wo con Stat Hospital Course (1) Compression fracture of C7 vertebra: Status post fall about 2 days ago -Imaging of cervical spine x-ray reviewed showing an acute C7 compression fracture with 50% loss of vertebral body and minimal retropulsion, and acute nondisplaced fracture of the left superior articulating facet of C7, inferior T1 and superior T2 endplate fractures. -Discussion with the ER reported Dr. Violetta Wilson notes these fractures are nonoperable -Pain control with Tylenol 650 every 8, will add additional IV med if needed for breakthrough pain, lidocain patch -PT/OT consults -Ortho spine consult- continue [place]-collar until they are seen -Allow diet as this is nonsurgical -Denies any neuro symptoms in the extremities -Awaiting Dr. Mederos to see the patient -Likely discharge tomorrow with follow-up of with the Ortho as mentioned in Ortho follow-up notes -Has been on Ultram for neck pain -PT and OT recommended rehab -Pain is controlled reasonably and awake placement -Will be transferred to [facility] this afternoon (2) Compression fracture of thoracic vertebra: -Acute fracture of the inferior endplate of T1 and superior endplate of T2 with mild loss of vertebral height Ortho evaluation as above No required for any surgery and her back brace Denies any back pain and/or radiation of pain (3) UTI (urinary tract infection): - UA appears to be grossly infected, follow urine culture, possibly adding to imbalance and fall which occurred as per HPI - IV Rocephin started in the ER, continue - WBC 7.98, afebrile -Await urine culture and sensitivity-pansensitive -Has been getting oral Cefdinir to continue for 5 more days (4) CAD (coronary artery disease): No acute cardiac symptom (5) Cardiomyopathy: No chest pain and no palpitation (6) Hypertension: (7) Hypercholesterolemia: (8) Biventricular ICD (implantable cardioverter-defibrillator) in place: - Last Echo is from September 2008 where she had LVEF of 30% - Trop 19.7, trend another set now -Order metoprolol 25 mg now as she missed her morning medications, continue spironolactone and Lasix tomorrow morning -We will start new medication, losartan 25 mg tomorrow morning -Patient appears euvolemic, no signs of fluid overload -IV hydralazine as needed with parameters for hypertension (9) Depression: - Cont prozac DVT PPx: - teds, scds, Plavix and aspirin CODE: DNR/DNI Dispo: From home, likely to remain in the hospital x 1-2 days She will be discharged to [facility] this afternoon Total Time Total Time Spent Total Time Spent (In Minutes): 35 minutes Discharge Plan Discharge Items Patient Disposition: Transfer Inpatient Rehab Fac Reason For Visit: FLL, UTI, CSPINE FRACTURE Discharge Diagnosis: Status post fall with compression fracture of C7 vertebra, inferior endplate of T1 and superior endplate of T2 fracture with mild loss of vertebral height, UTI, stable CAD Condition on Discharge: Fair Activity: As commented below Activity Comment: Continue PT and OT Non-emergency contact: Primary Care Provider Call non-emergency contact if: you have any medication questions and your symptoms worsen Follow-up/Referrals: Coleman Gonzales MD [Primary Care Provider] - (Please make an appointment with your primary care provider within 7 days following discharge from the facility) Diet: Heart Healthy Addtl Attending Provider Instructions: Please take precautions to avoid fall The recommendation is that she wear a rigid [place] collar at all times with the exception of being able to remove this when bathing and eating. No lifting over 5 pounds. Ambulate ad keara. Please have follow-up with Dr. Mederos's office within 2 weeks Pending Studies at Discharge: No Stand-Alone Forms: My [facility] Skilled Items Patient informed of condition?: Yes DNR: Yes Discharge Level of Care: Acute rehab Communicable Disease: No Discharge Prognosis: Stable Lines: None Urinary Catheter: No Medications and DC Order Prescriptions: New tramadol 50 mg Tablet 50 mg PO Q6H PRN (Reason: pain) 5 Days Qty: 15 0RF lidocaine 5 % Adhesive Patch,Medicated 1 patch transdermal QAM 30 Days Qty: 30 0RF losartan 25 mg Tablet 25 mg PO QAM 30 Days Qty: 30 0RF cefdinir 300 mg Capsule 300 mg PO BID 2 Days Qty: 4 0RF Continued aspirin [Mel Low Dose Aspirin] 81 mg tablet,delayed release (DR/EC) 81 mg PO DAILY metoprolol tartrate 25 mg tablet 25 mg PO BID nitroglycerin 0.4 mg tablet, sublingual 0.4 mg SL Q5M PRN (Reason: Chest Pain) clopidogrel 75 mg tablet 75 mg PO DAILY Qty: 90 3RF atorvastatin 40 mg tablet 40 mg PO QPM furosemide 20 mg tablet 20 mg PO DAILY Rx Instructions: as directed for weight gain greater than 2 lbs in 24 hours or greater than 4 lbs in 3 days spironolactone 25 mg tablet 12.5 mg PO DAILY multivitamin tablet 1 tab PO DAILY fluoxetine 20 mg capsule 20 mg PO QAM calcium carbonate-vitamin D3 [Calcium 500 + D] 500 mg-5 mcg (200 unit) Tablet 1 tab PO TID Discharge Orders: Discharge Order (Routine); Ordered 09/10/22 Ordered By: Santiago Perkins Admission Data Admit Date/Time: 09/06/22 15:23 Attending Provider: Santiago Perkins Admit Provider: Jack Rodriguez Primary Care Provider: Coleman Gonzales Other Providers: Jameson Mederos ; Jack Rodriguez ; [facility] Other Interventions: Discharge Summary Assessment (RN) Last Done: 09/10/22 10:07
== END 2022-09-10 14:59 | DRG 552 ==
LOC: ED 09:40 → 2W 15:23 → SUATTDRO 15:23 → 2W 17:29
DX: I16.0 Hypertensive urgency; S12.690A Other displaced fracture of seventh cervical vertebra, initial encounter for closed fracture; Z95.810 Presence of automatic (implantable) cardiac defibrillator; Y92.019 Unspecified place in single-family (private) house as the place of occurrence of the external cause; I25.10 Atherosclerotic heart disease of native coronary artery without angina pectoris; M81.0 Age-related osteoporosis without current pathological fracture; S22.010A Wedge compression fracture of first thoracic vertebra, initial encounter for closed fracture; Z88.0 Allergy status to penicillin; Z79.02 Long term (current) use of antithrombotics/antiplatelets; Z66 Do not resuscitate; S22.020A Wedge compression fracture of second thoracic vertebra, initial encounter for closed fracture; Z79.899 Other long term (current) drug therapy; Z88.2 Allergy status to sulfonamides; Y93.E9 Activity, other interior property and clothing maintenance; R29.6 Repeated falls; F32.A Depression, unspecified; E78.00 Pure hypercholesterolemia, unspecified; N39.0 Urinary tract infection, site not specified; Z88.1 Allergy status to other antibiotic agents; Z88.6 Allergy status to analgesic agent; W18.09XA Striking against other object with subsequent fall, initial encounter; I25.5 Ischemic cardiomyopathy; I10 Essential (primary) hypertension; M25.512 Pain in left shoulder; Y99.8 Other external cause status; Z88.5 Allergy status to narcotic agent; Z79.82 Long term (current) use of aspirin